=== PATIENT | male | born 1950 | race Caucasian/White ===

== ENCOUNTER 2017-05-09 00:50 | Inpatient (IN) | payer OTHER ==
[2017-05-09] VITALS (29 sets, daily range): BP systolic 73–132; BP diastolic 45–90; PULSE 45–71; TEMP 36.5–36.8; O2SAT 93–100; Ht 180.3 cm; Wt 81.5 kg
[~2017-05-09] VITALS: Ht 180.3 cm; Wt 81.5 kg
[2017-05-09] MEDS ORDERED: ONDANSETRON INJ 2 MG/ML 2 ML VIAL IV STA (01:05)
[2017-05-09] MEDS ORDERED: KETOROLAC TROMETHAMINE 30 MG/ML VIAL IV STA (01:05)
[2017-05-09] MEDS ORDERED: SODIUM CHLORIDE 0.9% 1000ML 1,000 ML IV STA ×3 (01:05→04:08)
[2017-05-09] MEDS ORDERED: CEFTRIAXONE SOD INJ 1 GM ADDVIAL IV STA (01:07)
[2017-05-09] MEDS ORDERED: ACETAMINOPHEN 500 MG TAB PO STA (01:09)
[2017-05-09] MEDS ORDERED: FENTANYL CITRATE INJ 50 MCG/1 ML 2 ML VIAL IV PRN (01:15)
[2017-05-09 01:52] LABS: BASO % 0.1 %; BASO ABS # 0.01 K/uL (0-0.2); COMPLETE YES; EOS % 0.1 %; HEMATOCRIT 39.8 % (42-52); IG% 0.7 %; LYMPH % 2.9 %; LYMPH ABS # 0.37 K/uL (1.2-3.4); MEAN CELL VOLUME 90.2 fL (80-100); MEAN CORPUSCULAR HEMOGLOBIN 32.4 pg (25-34); MEAN CORPUSCULAR HGB CONC 35.9 g/dl (32-36); MEAN PLATELET VOLUME 11.8 fL (7.4-10.4); NEUT % 95.2 %; PLATELET COUNT 167 K/uL (130-400); RED BLOOD COUNT 4.41 M/uL (4.7-6.1)
[2017-05-09 02:01] LABS: INR 1.1 (0.9-1.1); PROTHROMBIN TIME (PATIENT) 12.1 SECONDS (9.0-12.0)
[2017-05-09 02:25] LABS: BUN/CREATININE RATIO 14.1 (10-20); CALCIUM 8.7 mg/dl (8.5-10.1); CREATININE 1.1 mg/dl (0.60-1.40); POTASSIUM 3.6 mmol/L (3.5-5.1)
[2017-05-09] MEDS ORDERED: METRONIDAZOLE 500MG / 100ML NSS IV STA (04:03)
--- NOTE | 2017-05-09 04:27 | History and Physical ---
History & Physical Date & Time of Service: May 09, 2017 at 04:27 . Chief Complaint: fever, chills, sweats, abdominal pain . Primary Care Physician: No Doctor, Assigned . History of Present Illness Source: patient 67 YO male from [place], [place]. Visiting his family here. PCP: Dr. Kenny Morelos [address] [place] [address] He enjoys excellent health. 2 days prior to admission he developed epigastric abdominal pain a couple hours after eating a burrito. Pain was severe and did not radiate. It was initially associated with nausea, no vomiting. Tried antacid without much benefit. Yesterday he felt week and lightheaded. Persistent nausea and subsequent vomiting. No diarrhea. No hematemesis, melena, hematochezia. Temp as high as 104. Experienced chills and sweats. Came to ED for evaluation. BP as low as 79 systolic. BP remained in 80's systolic after fluid resuscitation with 2 L NSS. . Past Medical/Surgical History PMH no chronic medical problems PSH no surgical history . Family History FATHER Coronary artery disease MOTHER Alzheimer's disease Social History Smoking Status: Former Smoker Alcohol Use: occasionally Marital Status: Allergies Coded Allergies: No Known Allergies (Unverified , 05/09/17) Home Medications No Active Prescriptions or Reported Meds Review of Systems Constitutional: + fever, + chills, + sweats, No weight loss Eyes: No worsening of vision ENT: No nasal symptoms, No sore throat Respiratory: No cough, No shortness of breath Cardiovascular: No chest pain, No edema Abdomen: + problem reported (as noted above) Musculoskeletal: No joint pain, No muscle pain Neurologic: + problem reported (occasional headache) Endocrine: No excessive thirst, No excessive urination Hematologic / Lymphatic: No abnormal bleeding/bruising, No swollen lymph nodes Integumentary: No rash, No new/changing skin lesions Physical Exam Vital Signs Date Time Temp Pulse Resp B/P (MAP) Pulse Ox O2 Delivery O2 Flow Rate FiO2 05/09/17 04:07 36.4 75 14 82/50 93 Room Air 05/09/17 03:14 91/51 05/09/17 03:10 83 19 93 05/09/17 03:01 88/51 05/09/17 02:40 85 19 92 05/09/17 02:34 79 22 82/49 94 Room Air 05/09/17 02:33 76 18 79/47 95 Room Air 05/09/17 02:14 82 19 88/50 94 Room Air 05/09/17 02:03 85 21 86/52 92 Room Air 05/09/17 02:01 83 05/09/17 01:58 83 23 93/48 92 Room Air 05/09/17 00:55 37.9 109 18 104/67 95 Room Air General Appearance: WD/WN, no apparent distress Head: normocephalic, atraumatic Eyes: normal inspection, PERRL, EOMI, sclerae normal (conjunctivae pink) ENT: normal ENT inspection, hearing grossly normal, pharynx normal Neck: supple, no adenopathy, thyroid normal, trachea midline Respiratory/Chest: lungs clear, no respiratory distress, no accessory muscle use Cardiovascular: regular rate, rhythm, no edema, no gallop, no JVD, no murmur, normal peripheral pulses Abdomen/GI: + pertinent finding (quiet bowel sounds, soft, nondistended, nontender, no hepatomegaly or splenomegaly appreciated) Extremities/Musculoskelatal: normal inspection, no calf tenderness, no pedal edema 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 (PERRL, EOMI, no facial palsy, no dysarhtria), no motor/sensory deficits (motor strength upper and lower exrtremities intact), alert, normal mood/affect, normal reflexes (patellar DTR' s 2/2, plantar reflexes downgoing), oriented x 3 Skin: normal color, warm/dry, no rash, + diaphoresis (mild) Lymphatic: no adenopathy (cervical / axillary) Diagnostics Laboratory Results Results Past 24 Hours Test 05/09/17 01:25 Range/Units White Blood Count 12.70 4.8-10.8 K/uL Red Blood Count 4.41 4.7-6.1 M/uL Hemoglobin 14.3 14.0-18.0 g/dL Hematocrit 39.8 42-52 % Mean Corpuscular Volume 90.2 80-100 fL Mean Corpuscular Hemoglobin 32.4 25-34 pg Mean Corpuscular Hemoglobin Concent 35.9 32-36 g/dl Platelet Count 167 130-400 K/uL Mean Platelet Volume 11.8 7.4-10.4 fL Neutrophils (%) (Auto) 95.2 % Lymphocytes (%) (Auto) 2.9 % Monocytes (%) (Auto) 1.0 % Eosinophils (%) (Auto) 0.1 % Basophils (%) (Auto) 0.1 % Neutrophils # (Auto) 12.09 1.4-6.5 K/uL Lymphocytes # (Auto) 0.37 1.2-3.4 K/uL Monocytes # (Auto) 0.13 0.11-0.59 K/uL Eosinophils # (Auto) 0.01 0-0.5 K/uL Basophils # (Auto) 0.01 0-0.2 K/uL RDW Standard Deviation 42.2 36.4-46.3 fL RDW Coefficient of Variation 12.9 11.5-14.5 % Immature Granulocyte % (Auto) 0.7 % Immature Granulocyte # (Auto) 0.09 0.00-0.02 K/uL Prothrombin Time 12.1 9.0-12.0 SECONDS Prothromb Time International Ratio 1.1 0.9-1.1 Activated Partial Thromboplast Time 26.5 21.0-31.0 SECONDS Partial Thromboplastin Ratio 1.0 Sodium Level 137 136-145 mmol/L Potassium Level 3.6 3.5-5.1 mmol/L Chloride Level 105 98-107 mmol/L Carbon Dioxide Level 23 21-32 mmol/L Anion Gap 9.0 3-11 mmol/L Blood Urea Nitrogen 15 7-18 mg/dl Creatinine 1.10 0.60-1.40 mg/dl Est Creatinine Clear Calc Drug Dose 67.5 ml/min Estimated GFR () 79.0 Estimated GFR (Non- 68.1 BUN/Creatinine Ratio 14.1 10-20 Random Glucose 126 70-99 mg/dl Calcium Level 8.7 8.5-10.1 mg/dl Total Bilirubin 3.2 0.2-1 mg/dl Direct Bilirubin 1.6 0-0.2 mg/dl Aspartate Amino Transf (AST/SGOT) 166 15-37 U/L Alanine Aminotransferase (ALT/SGPT) 331 12-78 U/L Alkaline Phosphatase 155 45-117 U/L Total Protein 6.8 6.4-8.2 gm/dl Albumin 3.5 3.4-5.0 gm/dl Lipase 168 73-393 U/L Microbiology Results 05/09/17 Blood Culture, Received Pending 05/09/17 Blood Culture, Received Pending Diagnostic Radiology Chest x-ray reviewed by undersigned (preliminary interpretation): no infiltrates, effusions, CHF US RUQ preliminary interpretation by [facility]: cholelithiasis without apparent cholecystitis or choledocholithiasis . EKG EKG performed at 01:16 reviewed and demonstrated NSR at 90 / minute, no acute ST or T-wave abnormalities. . Impression Assessment and Plan SEPSIS Meets criteria for sepsis per 2001 definition and current CMS guidelines ( reported fever of 104, tachycardia, leukocytosis). Systolic BP as low as 79 in ED. Remained hypotensive despite initial fluid resuscitation with 2 L NSS. Serum lactate 0.79. Most likely source of sepsis = biliary tract. US RUQ shows cholelithiasis, though no apparent cholecystitis or choledocholithiasis (preliminary reading). LFT's elevated. Lipase normal. Blood cultures obtained in ED. Received broad spectrum antibiotic coverage with ceftriaxone and metronidazole. Will change antimicrobial therapy to ampicillin / sulbactam. Continue IV fluids. Add pressor support if hemodynamics do not improve. Consult GI regarding biliary tract concerns. Consult CCM regarding sepsis. VTE PROPHYLAXIS SCD's pending decisions about possible invasive procedures. Ambulate when able. RESUSCITATION STATUS Discussed with patient. He does not have a living will. He would like resuscitation attempted in the event of a cardiopulmonary arrest if there is a reasonable chance of a meaningful recovery, but does not want prolonged extraordinary measures if prognosis is poor. Therefore, code status = "Level 1" (full resuscitation). DISPOSITION Admit to ICU. Expected discharge to home. Medical follow-up with Dr. Morelos in [place]. . VTE Prophylaxis VTE Risk Assessment Done? Y/N: Yes Risk Level: Moderate Given or contraindicated: SCD's Additional Copies To Dr. Kenny Julien
--- NOTE | 2017-05-09 05:15 | EMERGENCY ROOM VISIT NOTE ---
History Report prepared by [place]: Chet Tapia Under the Supervision of: Dr. Lit Woody D.O. First contact with patient: 01:00 Chief Complaint: ABDOMINAL PAIN Stated Complaint: FEVER,STOMACH PAINS,VOMITING,SHAKES,SWEATS History of Present Illness The patient is a 67 year old male who presents to the Emergency Room with complaints of worsening dizziness beginning this morning. He currently rates his discomfort an 8/10 in severity. The patient states he took TUMs last night because he was experiencing severe abdominal pain and went to bed. He reports that he woke up this morning from a bad nights sleep. The patient notes that he was experiencing tremors, chills, a fever, diaphoresis, weakness, and joint pain. He states that he vomited prior to arrival, and his daughter thinks he lost consciousness briefly on the way to the ED. The patient reports his is sick with a head cold and sorethroat. He denies a history of abdominal surgery and taking medication. Source of History: patient Onset: last evening Position: head Symptom Intensity: 8/10 Quality: other (dizziness) Timing: worsening Associated Symptoms: + LOC, + fevers, + chills, + diaphoresis, + vomiting, + abdominal pain, + weakness Note: Associated symptoms: tremors, and joint pain Review of Systems See HPI for pertinent positives & negatives. A total of 10 systems reviewed and were otherwise negative. Past Medical & Surgical Medical Problems: (1) No Known Active Medical Problems (2) Sepsis Family History Heart disease Social History Smoking Status: Never Smoker Smokeless Tobacco Use: No Alcohol Use: occasionally Marital Status: Housing Status: lives with significant other Current/Historical Medications No Active Prescriptions or Reported Meds Allergies Coded Allergies: No Known Allergies (Unverified , 05/09/17) Physical Exam Vital Signs Date Time Temp Pulse Resp B/P (MAP) Pulse Ox O2 Delivery O2 Flow Rate FiO2 05/09/17 05:01 87/57 05/09/17 04:49 71 18 95 05/09/17 04:31 95/56 05/09/17 04:19 73 17 92 05/09/17 04:07 36.4 75 14 82/50 93 Room Air 05/09/17 04:07 82/50 05/09/17 03:19 80 19 94 05/09/17 03:14 91/51 05/09/17 03:10 83 19 93 05/09/17 03:01 88/51 05/09/17 02:40 85 19 92 05/09/17 02:34 79 22 82/49 94 Room Air 05/09/17 02:33 76 18 79/47 95 Room Air 05/09/17 02:14 82 19 88/50 94 Room Air 05/09/17 02:03 85 21 86/52 92 Room Air 05/09/17 02:01 83 05/09/17 01:58 83 23 93/48 92 Room Air 05/09/17 00:55 37.9 109 18 104/67 95 Room Air Physical Exam CONSTITUTIONAL/VITAL SIGNS: Reviewed / noted above. GENERAL: Non-toxic in appearance. INTEGUMENTARY: Warm, dry, and [place]. HEAD: Normocephalic. EYES: without scleral icterus or trauma. ENT/OROPHARYNX: clear and moist. LYMPHADENOPATHY/NECK: Is supple without lymphadenopathy or meningismus. RESPIRATORY: Lungs clear and equal. CARDIOVASCULAR: Regular rate and rhythm. GI/ABDOMEN: Soft and mild diffuse tenderness to palpation (described as a 1/10 in severity). No organomegaly or pulsatile mass. No rebound or guarding. Normal bowel sounds. EXTREMITIES: Warm and well perfused. BACK: No CVA tenderness. NEUROLOGICAL: Intact without focal deficits. PSYCHIATRIC: normal affect. MUSCULOSKELETAL: Normally developed with good muscle tone. Medical Decision & Procedures ER Provider Diagnostic Interpretation: Radiology results as stated below per my review and radiologist interpretation: One view chest x-ray: no acute disease, no pneumothorax, no pneumonia US RUQ: Enlarged mildly echogenic liver suggesting steatosis. Normal right kidney. No biliary dilatation. Cholelithiasis without sonographic findings of acute cholecystitis. Radiologist: Tee Phillip MD 6 Study ready at [id number] and initial results transmitted at [id number]. Laboratory Results 05/09/17 01:25 Red Blood Count 4.41, Mean Corpuscular Volume 90.2, Mean Corpuscular Hemoglobin 32.4, Mean Corpuscular Hemoglobin Concent 35.9, Mean Platelet Volume 11.8, Neutrophils (%) (Auto) 95.2, Lymphocytes (%) (Auto) 2.9, Monocytes (%) (Auto) 1.0, Eosinophils (%) (Auto) 0.1, Basophils (%) (Auto) 0.1, Neutrophils # (Auto) 12.09, Lymphocytes # (Auto) 0.37, Monocytes # (Auto) 0.13, Eosinophils # (Auto) 0.01, Basophils # (Auto) 0.01 05/09/17 01:25 Test 05/09/17 01:25 05/09/17 04:18 White Blood Count 12.70 K/uL (4.8-10.8) Red Blood Count 4.41 M/uL (4.7-6.1) Hemoglobin 14.3 g/dL (14.0-18.0) Hematocrit 39.8 % (42-52) Mean Corpuscular Volume 90.2 fL (80-100) Mean Corpuscular Hemoglobin 32.4 pg (25-34) Mean Corpuscular Hemoglobin Concent 35.9 g/dl (32-36) Platelet Count 167 K/uL (130-400) Mean Platelet Volume 11.8 fL (7.4-10.4) Neutrophils (%) (Auto) 95.2 % Lymphocytes (%) (Auto) 2.9 % Monocytes (%) (Auto) 1.0 % Eosinophils (%) (Auto) 0.1 % Basophils (%) (Auto) 0.1 % Neutrophils # (Auto) 12.09 K/uL (1.4-6.5) Lymphocytes # (Auto) 0.37 K/uL (1.2-3.4) Monocytes # (Auto) 0.13 K/uL (0.11-0.59) Eosinophils # (Auto) 0.01 K/uL (0-0.5) Basophils # (Auto) 0.01 K/uL (0-0.2) RDW Standard Deviation 42.2 fL (36.4-46.3) RDW Coefficient of Variation 12.9 % (11.5-14.5) Immature Granulocyte % (Auto) 0.7 % Immature Granulocyte # (Auto) 0.09 K/uL (0.00-0.02) Prothrombin Time 12.1 SECONDS (9.0-12.0) Prothromb Time International Ratio 1.1 (0.9-1.1) Activated Partial Thromboplast Time 26.5 SECONDS (21.0-31.0) Partial Thromboplastin Ratio 1.0 Anion Gap 9.0 mmol/L (3-11) Est Creatinine Clear Calc Drug Dose 67.5 ml/min Estimated GFR () 79.0 Estimated GFR (Non- 68.1 BUN/Creatinine Ratio 14.1 (10-20) Calcium Level 8.7 mg/dl (8.5-10.1) Total Bilirubin 3.2 mg/dl (0.2-1) Direct Bilirubin 1.6 mg/dl (0-0.2) Aspartate Amino Transf (AST/SGOT) 166 U/L (15-37) Alanine Aminotransferase (ALT/SGPT) 331 U/L (12-78) Alkaline Phosphatase 155 U/L (45-117) Total Protein 6.8 gm/dl (6.4-8.2) Albumin 3.5 gm/dl (3.4-5.0) Lipase 168 U/L (73-393) Bedside Lactic Acid Venous 0.79 mmol/L (0.90-1.70) Laboratory results as stated above per my review. Medications Administered Medications (Trade) Dose Ordered Sig/Gage Route Start Time Stop Time Status Last Admin Dose Admin Sodium Chloride 1,000 ml @ 999 mls/hr Q1H1M STAT IV 05/09/17 01:05 05/09/17 02:05 DC 05/09/17 01:05 999 MLS/HR Ondansetron HCl (Zofran Inj) 4 mg NOW STAT IV 05/09/17 01:05 05/09/17 01:07 DC 05/09/17 01:16 4 MG Ketorolac Tromethamine (Toradol Inj) 30 mg NOW STAT IV 05/09/17 01:05 05/09/17 01:07 DC 05/09/17 01:17 30 MG Ceftriaxone Sodium (Rocephin Inj) 1 gm NOW STAT IV 05/09/17 01:07 05/09/17 01:08 DC 05/09/17 01:17 1 GM Acetaminophen (Tylenol Tab) 1,000 mg NOW STAT PO 05/09/17 01:09 05/09/17 01:10 DC 05/09/17 01:17 1,000 MG Sodium Chloride 1,000 ml @ 999 mls/hr Q1H1M STAT IV 05/09/17 02:15 05/09/17 03:15 DC 05/09/17 02:15 999 MLS/HR Metronidazole (Flagyl / Nss) 500 mg NOW STAT IV 05/09/17 04:03 05/09/17 04:04 DC 05/09/17 05:08 500 MG Sodium Chloride 1,000 ml @ 999 mls/hr Q1H1M STAT IV 05/09/17 04:08 05/09/17 05:08 DC 05/09/17 04:42 999 MLS/HR ECG Indication: abdominal pain Rate (beats per minute): 88 Rhythm: normal sinus Findings: no acute ischemic change, no ectopy ED Course 0102: Previous medical records were reviewed. The patient was evaluated in room B06. A complete history and physical examination was performed. 0105: Ordered Toradol Inj 30mg IV, Zofran Inj 4mg IV, Sodium Chloride 1000 ml @ 999 mls/hr IV 0107: Ordered Rocephin Inj 1gm IV 0109: Ordered Acetaminophen 1000mg PO 0115: Ordered Fentanyl Citrate 50mcg IV 0215: Ordered Sodium Chloride 1000 ml @ 999 mls/hr IV 0314: I reevaluated the patient and updated him about his elevated LFTs. He denies a history of a cholecystectomy. The patient will be going for an ultrasound of the gallbladder. He denies a history of hypotension. The patient notes he is feeling a lot better. 0401: On reevaluation, the patient is felling better. I discussed the results and findings with him. He verbalized agreement of the treatment plan. 0403; Ordered Metronidazole 500mg IV 0408: Ordered Sodium Chloride 1000 ml @ 999 mls/hr IV 0413: I discussed the patients case with Dr. Sandoval, [facility] Hospitalist. The patient will be evaluated for further treatment. Medical Decision Differential includes viral illness, influenza, streptococcal pharyngitis, meningitis, pneumonia, sinusitis, UTI, pyelonephritis, and otitis media. This is a 67-year-old male who presents to the ED with a chief complaint of generalized aches, fevers, tremors, stomach pain, joint pain. The patient states that the symptoms started yesterday. He reports an episode of nausea and vomiting tonight. He states that his stomach pain seemed to improve since earlier. He complains of feeling a little dizzy. Temperature 37.9. Heart rate was 109. The patient has had some sick relatives. His physical exam revealed a mild diffuse abdominal tenderness. There were no rashes. His lungs were clear. He does not appear to be in any distress. Chest x-ray did not show acute disease. CBC reveals a white blood cell count of 12.7. LFTs are elevated as is the bilirubin. EKG shows a normal sinus rhythm. Gallbladder ultrasound shows cholelithiasis. [id number] lactate was normal. The patient was treated with IV Toradol, IV fluids 3 L, IV fentanyl, IV Zofran, Tylenol by mouth, IV Rocephin and IV Flagyl. The patient's blood pressure was initially okay and the patient was slightly tachycardic. The patient's tachycardia improved but his blood pressure decreased into the 80s systolic despite the IV fluids. I spoke with Dr. Sandoval, who will see the patient for further inpatient evaluation and care. The patient did state that symptomatically, he was feeling much better. Medication Reconcilliation Current Medication List: was personally reviewed by me Blood Pressure Screening Patient's blood pressure: Low blood pressure Monitored by hospitalist. Consults Time Called: [phone] [facility]: [phone] [facility] The patient will be evaluated for further treatment. Impression Primary Impression: Ascending cholangitis Additional Impression: Sepsis Critical Care I have personally spent greater than 35 minutes of critical care time in the direct management of this patient. This includes bedside care, interpretation of diagnostic studies, and testing, discussion with consultants, patient, and family members, and other required patient management activities. This 35 minutes is in excess of all separately billable procedures. Scribe Attestation The scribe's documentation has been prepared under my direction and personally reviewed by me in its entirety. I confirm that the note above accurately reflects all work, treatment, procedures, and medical decision making performed by me. Departure Information Dispostion Being Evaluated By Hospitalist Prescriptions No Active Prescriptions or Reported Meds Referrals No Doctor, Assigned (PCP) Patient Instructions My [facility] Problem Qualifiers
[2017-05-09] MEDS ORDERED: NOREPINEPHRINE BIT INJ 8 MG in DEXTROSE 5% 500ML 500 ML IV PRN (05:50)
[2017-05-09] MEDS ORDERED: LACTATED RINGER'S 1000ML 1,000 ML IV SCH (06:00)
--- NOTE | 2017-05-09 06:31 | Progress Note ---
Progress Note Post Crystalloid Evaluation Date: May 09, 2017 Time: 06:25 Subjective BP's still fluctuating. Systolic BP up to 90, MAP up to 56. Denies CP, SOB, abdominal pain, nausea, vomiting. . Physical Exam Vital Signs: Vital Signs Date Time Temp Pulse Resp B/P (MAP) Pulse Ox O2 Delivery O2 Flow Rate FiO2 05/09/17 06:15 56 16 90/46 (61) 96 05/09/17 06:00 Room Air 05/09/17 05:15 36.8 Lungs: lungs clear Heart: regular rate, rhythm, no edema, no gallop, no JVD Peripheral Pulse: Normal Capillary Refill: Normal (less than 2 seconds) Skin: Unremarkable Assessment & Plan Sepsis, probable biliary tract etiology. Hemodynamics improving after fluid resuscitation with 3 L NSS. Received broad spectrum antibiotics. Check repeat labs, including procalcitonin + repeat lactate. .
[2017-05-09] MEDS ORDERED: AMPICILLIN/SULBACTAM SOD INJ 3,000 MG in SODIUM CHLORIDE 0.9% 100ML 100 ML IV STA (06:43)
--- NOTE | 2017-05-09 07:04 | DIAGNOSTIC IMAGING REPORT ---
ABDOMINAL ULTRASOUND, RIGHT UPPER QUADRANT HISTORY: elevated lfts. COMPARISON: None. FINDINGS: Pancreas: The pancreatic head and tail are obscured by overlying bowel gas. The remaining portions of the pancreas are within normal limits. Liver: Mildly enlarged measuring 21 cm. No hepatic masses. Gallbladder: Multiple small gallstones. No gallbladder wall thickening. CBD: 5 mm. Right kidney: No hydronephrosis. IMPRESSION: 1. Mild hepatomegaly. 2. Cholelithiasis. Electronically signed by: Moises Rausch M.D. 05/09/2017 7:02 AM Dictated Date/Time: 05/09/2017 7:01 AM
--- NOTE | 2017-05-09 07:23 | DIAGNOSTIC IMAGING REPORT ---
CHEST ONE VIEW PORTABLE HISTORY: Generalized abdominal pain. Vomiting. COMPARISON: None. FINDINGS: The lungs are clear. Cardiac silhouette is normal in size. No pleural effusions. No pneumothorax. IMPRESSION: No acute process. Electronically signed by: Moises Rausch M.D. 05/09/2017 7:22 AM Dictated Date/Time: 05/09/2017 7:21 AM
[2017-05-09 07:43] LABS: HEMATOCRIT 34.4 % (42-52); MEAN CELL VOLUME 90.1 fL (80-100); MEAN CORPUSCULAR HEMOGLOBIN 32.2 pg (25-34); MEAN CORPUSCULAR HGB CONC 35.8 g/dl (32-36); MEAN PLATELET VOLUME 11.9 fL (7.4-10.4); PLATELET COUNT 159 K/uL (130-400); RED BLOOD COUNT 3.82 M/uL (4.7-6.1); WHITE BLOOD COUNT 18.83 K/uL (4.8-10.8)
[2017-05-09] MEDS: PANTOprazole INJ 40 MG in SYRINGE 0 ML IV SCH (07:44)
[2017-05-09 08:12] LABS: BUN/CREATININE RATIO 14.8 (10-20); CALCIUM 7.9 mg/dl (8.5-10.1); CREATININE 0.95 mg/dl (0.60-1.40); POTASSIUM 3.7 mmol/L (3.5-5.1)
[2017-05-09] MEDS: SODIUM CHLORIDE 0.9% 1000ML 1,000 ML IV SCH ×2 (08:27→17:02)
[2017-05-09] MEDS ORDERED: NURSING VERBAL MED ORDER ONE (08:30)
[2017-05-09 09:44] LABS: URINE APPEARANCE CLEAR (CLEAR); URINE BILIRUBIN NEG (NEG); URINE COLOR DK YELLOW; URINE NITRITE NEG (NEG); UROBILINOGEN NEG (NEG)
[2017-05-09 09:46] LABS: MANUAL MICROSCOPIC REQUIRED? NO; REVIEW REQ? NO
--- NOTE | 2017-05-09 09:52 | Critical Care Consultation ---
Critical Care Consultation Date of Consultation: May 09, 2017. Attending Physician: Brice Davidson MD Reason for Consultation: sepsis. History of Present Illness Dear Dr. Sandoval: Thank you for your kind referral of Mr. Clayton to the ICU serviceBethany Singleton is 67 yo male without PMHX, not on any medications at home, presented to the ED with two days of nausia, vomiting, abdominal discomfort and dizziness, the pt denies chest pain, syncope , but he felt fever and chills after eating two days old burritos . he presented to the Ed and found to be hypotensive with systolic 70 mm, started on IVF and received overnight almost 4.5 liters of fluid. he feels better this am but continued to need pressors to support his BP. no nausea or vomiting now and no abdominal pain either. he was started on Unasyn and his lab work up revealed elevated liver and billiary markers. US of the abdomen showed cholelithiasis but GB wall thickening and no billiary dilation. Lipase was normal. the pt denies alcohol drinking and he is ex smoker quit 4 years ago. he is on no meds. never been hospitalized. Family History Alzheimer's disease MOTHER Coronary artery disease FATHER Social History Smoking Status: Former Smoker Smokeless Tobacco Use: No Alcohol Use: occasionally Marital Status: Housing Status: lives with significant other Allergies Coded Allergies: No Known Allergies (Unverified , 05/09/17) Home Medications No Active Prescriptions or Reported Meds Current Inpatient Medications Current Inpatient Medications Medications (Trade) Dose Ordered Sig/Gage Route Start Time Stop Time Status Last Admin Dose Admin Pantoprazole Sodium 40 mg/ Syringe 10 ml @ 5 mls/min DAILY IV 05/09/17 09:00 06/08/17 08:59 05/09/17 07:44 5 MLS/MIN Norepinephrine Bitartrate 8 mg/ Dextrose 508 ml @ 0 mls/hr Q0M PRN IV 05/09/17 05:50 06/08/17 05:49 05/09/17 06:45 30.2 MLS/HR Ampicillin Sodium/ Sulbactam Sodium 3000 mg/Sodium Chloride 108 ml @ 200 mls/hr Q6H IV 05/09/17 12:00 05/19/17 11:59 Sodium Chloride 1,000 ml @ 100 mls/hr Q10H IV 05/09/17 08:30 06/08/17 08:29 05/09/17 08:27 100 MLS/HR Review of Systems Constitutional: + fever, + chills, + sweats Eyes: No worsening of vision, No eye pain, No redness, No discharge, No diplopia, No problem reported ENT: No hearing loss, No unusual epistaxis, No nasal symptoms, No sore throat, No tinnitus, No dental problems, No trouble swallowing, No problem reported Respiratory: No cough, No sputum, No wheezing, No shortness of breath, No dyspnea on exertion, No dyspnea at rest, No hemoptysis, No problem reported Cardiovascular: No chest pain, No orthopnea, No PND, No edema, No claudication , No palpitations, No problem reported Abdomen: + pain, + nausea, + vomiting Neurologic: No memory loss, No paralysis, No weakness, No numbness/tingling, No vertigo, No balance problems, No problem reported Psychiatric: No depression symptoms, No anhedonism, No anxiety, No insomnia, No substance abuse, No problem reported Endocrine: No fatigue, No excessive thirst, No excessive urination, No problem reported Hematologic / Lymphatic: No abnormal bleeding/bruising, No clotting problems, No swollen lymph nodes, No night sweats, No problem reported Allergic / Immunologic: No environmental allergies, No seasonal allergies, No pet sensitivities, No food allergies, No hives, No frequent infections, No poor healing, No prolonged convalescence, No problem reported Physical Exam Date Time Temp Pulse Resp B/P (MAP) Pulse Ox O2 Delivery O2 Flow Rate FiO2 05/09/17 09:01 47 15 110/60 (77) 98 Room Air 05/09/17 08:31 49 19 116/69 (85) 98 Room Air 05/09/17 08:01 36.5 64 20 121/64 (83) 96 Room Air 05/09/17 08:00 Room Air 05/09/17 07:51 71 14 100/58 (72) 97 Room Air 05/09/17 07:46 57 18 122/63 (82) 96 Room Air 05/09/17 07:31 49 16 113/64 (80) 95 Room Air 05/09/17 07:16 54 18 108/53 (71) 95 Room Air 05/09/17 07:01 45 15 111/55 (73) 94 Room Air 05/09/17 06:45 45 17 120/55 (76) 98 05/09/17 06:36 56 15 74/45 (55) 94 05/09/17 06:30 55 16 73/48 (56) 93 05/09/17 06:15 56 16 90/46 (61) 96 05/09/17 06:00 61 16 82/51 (61) 95 Room Air 05/09/17 05:45 61 18 77/51 (60) 95 Room Air 05/09/17 05:31 64 24 81/50 (60) 94 05/09/17 05:16 93/63 (73) 05/09/17 05:15 36.8 68 22 93/63 94 Room Air 05/09/17 05:01 87/57 05/09/17 04:49 71 18 95 05/09/17 04:31 95/56 05/09/17 04:19 73 17 92 05/09/17 04:07 36.4 75 14 82/50 93 Room Air 05/09/17 04:07 82/50 05/09/17 03:19 80 19 94 05/09/17 03:14 91/51 05/09/17 03:10 83 19 93 05/09/17 03:01 88/51 05/09/17 02:40 85 19 92 05/09/17 02:34 79 22 82/49 94 Room Air 05/09/17 02:33 76 18 79/47 95 Room Air 05/09/17 02:14 82 19 88/50 94 Room Air 05/09/17 02:03 85 21 86/52 92 Room Air 05/09/17 02:01 83 05/09/17 01:58 83 23 93/48 92 Room Air 05/09/17 00:55 37.9 109 18 104/67 95 Room Air General Appearance: well-appearing, WD/WN, no apparent distress Head: normocephalic, atraumatic Eyes: PERRLA, no discharge, EOMI, sclerae normal ENT: normal ear exam, normal nasal exam, normal mouth exam, normal throat exam Neck: normal range of motion, no tenderness Respiratory: breath sounds normal, clear to auscultation Cardiovasular: regular rate/rhythm, normal S1S2, no M/G/R Abdomen: non tender, normal bowel sounds, no rebound, no masses, no guarding Upper Extremities: no edema Lower Extremities: no edema Neuro: alert, oriented x 3, normal motor exam, normal sensation Psychiatric: normal affect Laboratory Results Last 24 Hours Test 05/09/17 01:25 05/09/17 04:18 05/09/17 07:12 05/09/17 07:20 White Blood Count 12.70 K/uL 18.83 K/uL Red Blood Count 4.41 M/uL 3.82 M/uL Hemoglobin 14.3 g/dL 12.3 g/dL Hematocrit 39.8 % 34.4 % Mean Corpuscular Volume 90.2 fL 90.1 fL Mean Corpuscular Hemoglobin 32.4 pg 32.2 pg Mean Corpuscular Hemoglobin Concent 35.9 g/dl 35.8 g/dl Platelet Count 167 K/uL 159 K/uL Mean Platelet Volume 11.8 fL 11.9 fL Neutrophils (%) (Auto) 95.2 % Lymphocytes (%) (Auto) 2.9 % Monocytes (%) (Auto) 1.0 % Eosinophils (%) (Auto) 0.1 % Basophils (%) (Auto) 0.1 % Neutrophils # (Auto) 12.09 K/uL Lymphocytes # (Auto) 0.37 K/uL Monocytes # (Auto) 0.13 K/uL Eosinophils # (Auto) 0.01 K/uL Basophils # (Auto) 0.01 K/uL RDW Standard Deviation 42.2 fL 43.2 fL RDW Coefficient of Variation 12.9 % 13.1 % Immature Granulocyte % (Auto) 0.7 % Immature Granulocyte # (Auto) 0.09 K/uL Prothrombin Time 12.1 SECONDS Prothromb Time International Ratio 1.1 Activated Partial Thromboplast Time 26.5 SECONDS Partial Thromboplastin Ratio 1.0 Sodium Level 137 mmol/L 141 mmol/L Potassium Level 3.6 mmol/L 3.7 mmol/L Chloride Level 105 mmol/L 109 mmol/L Carbon Dioxide Level 23 mmol/L 21 mmol/L Anion Gap 9.0 mmol/L 11.0 mmol/L Blood Urea Nitrogen 15 mg/dl 14 mg/dl Creatinine 1.10 mg/dl 0.95 mg/dl Est Creatinine Clear Calc Drug Dose 67.5 ml/min 78.1 ml/min Estimated GFR () 79.0 94.3 Estimated GFR (Non- 68.1 81.3 BUN/Creatinine Ratio 14.1 14.8 Random Glucose 126 mg/dl 136 mg/dl Calcium Level 8.7 mg/dl 7.9 mg/dl Total Bilirubin 3.2 mg/dl Direct Bilirubin 1.6 mg/dl Aspartate Amino Transf (AST/SGOT) 166 U/L Alanine Aminotransferase (ALT/SGPT) 331 U/L Alkaline Phosphatase 155 U/L Total Protein 6.8 gm/dl Albumin 3.5 gm/dl Lipase 168 U/L Bedside Lactic Acid Venous 0.79 mmol/L Procalcitonin 29.10 ng/ml Hepatitis C Antibody Screen NEG Lactic Acid Level 1.7 mmol/L Test 05/09/17 09:15 Diagnostic Results US and CXR reviewed personally. as above mentioned in the first paragraph. Assessment & Plan 1- septic shock presumably acute cholangitis. no other source of infectious process to explain his sepsis. ( CXR is negative, UA is normal, lactate is normal). Plan: 1- obtain HIDA scan. 2- agree with Unasyn. 3- IVF with NS at 100 ml/hr. 4- taper Levophed to off. 5- if the HIDA is negative and he remains hypotensive, will proceed with abdominal / pelvic ct to r/o intra-abdominal process ( ischemia, infectious colitis, pyelo...etc). 6- DVT prophylaxis. 7- keep him NPO. 8- discussed with the staff on rounds in details. 9- awaiting GI input. discussed the plan with the pt , agreed to it, all questions been answered. CCT 45 min.
--- NOTE | 2017-05-09 10:46 | Progress Note ---
Medicine Progress Note Date & Time of Visit: May 09, 2017 at 10:46. Subjective seen resting in bed, comfortable states he feels improved compared to arrival less fever/chills, dizziness denies abdominal pain, nausea no chest pain, dyspnea no other symptom Objective Last 8 Hrs Date Time Temp Pulse Resp B/P (MAP) Pulse Ox O2 Delivery O2 Flow Rate FiO2 05/09/17 09:01 47 15 110/60 (77) 98 Room Air 05/09/17 08:31 49 19 116/69 (85) 98 Room Air 05/09/17 08:01 36.5 64 20 121/64 (83) 96 Room Air 05/09/17 08:00 Room Air 05/09/17 07:51 71 14 100/58 (72) 97 Room Air 05/09/17 07:46 57 18 122/63 (82) 96 Room Air 05/09/17 07:31 49 16 113/64 (80) 95 Room Air 05/09/17 07:16 54 18 108/53 (71) 95 Room Air 05/09/17 07:01 45 15 111/55 (73) 94 Room Air 05/09/17 06:45 45 17 120/55 (76) 98 05/09/17 06:36 56 15 74/45 (55) 94 05/09/17 06:30 55 16 73/48 (56) 93 05/09/17 06:15 56 16 90/46 (61) 96 05/09/17 06:00 61 16 82/51 (61) 95 Room Air 05/09/17 05:45 61 18 77/51 (60) 95 Room Air 05/09/17 05:31 64 24 81/50 (60) 94 05/09/17 05:16 93/63 (73) 05/09/17 05:15 36.8 68 22 93/63 94 Room Air 05/09/17 05:01 87/57 05/09/17 04:49 71 18 95 05/09/17 04:31 95/56 05/09/17 04:19 73 17 92 05/09/17 04:07 36.4 75 14 82/50 93 Room Air 05/09/17 04:07 82/50 05/09/17 03:19 80 19 94 05/09/17 03:14 91/51 9/23/17 03:10 83 19 93 05/09/17 03:01 88/51 Physical Exam: General- oriented x 3, not in distress, speaks in sentences with no effort Head- atraumatic Eyes- EOMI, anicteric ENT- oropharynx clear Neck- supple, no JVD, no adenopathy, no thyromegaly Lungs- clear breath sounds bilaterally,no rales/wheezes Heart- regular rhythm; no murmur, normal rate Abdomen- normal bowel sounds, non distended, soft, nontender, no Salter's sign Extremities- no pretibial edema, no calf tenderness Neuro- alert, oriented x 3;no gross focal deficits Skin- warm & dry Laboratory Results: Last 24 Hours Test 05/09/17 01:25 05/09/17 04:18 05/09/17 07:12 05/09/17 07:20 White Blood Count 12.70 K/uL 18.83 K/uL Red Blood Count 4.41 M/uL 3.82 M/uL Hemoglobin 14.3 g/dL 12.3 g/dL Hematocrit 39.8 % 34.4 % Mean Corpuscular Volume 90.2 fL 90.1 fL Mean Corpuscular Hemoglobin 32.4 pg 32.2 pg Mean Corpuscular Hemoglobin Concent 35.9 g/dl 35.8 g/dl Platelet Count 167 K/uL 159 K/uL Mean Platelet Volume 11.8 fL 11.9 fL Neutrophils (%) (Auto) 95.2 % Lymphocytes (%) (Auto) 2.9 % Monocytes (%) (Auto) 1.0 % Eosinophils (%) (Auto) 0.1 % Basophils (%) (Auto) 0.1 % Neutrophils # (Auto) 12.09 K/uL Lymphocytes # (Auto) 0.37 K/uL Monocytes # (Auto) 0.13 K/uL Eosinophils # (Auto) 0.01 K/uL Basophils # (Auto) 0.01 K/uL RDW Standard Deviation 42.2 fL 43.2 fL RDW Coefficient of Variation 12.9 % 13.1 % Immature Granulocyte % (Auto) 0.7 % Immature Granulocyte # (Auto) 0.09 K/uL Prothrombin Time 12.1 SECONDS Prothromb Time International Ratio 1.1 Activated Partial Thromboplast Time 26.5 SECONDS Partial Thromboplastin Ratio 1.0 Sodium Level 137 mmol/L 141 mmol/L Potassium Level 3.6 mmol/L 3.7 mmol/L Chloride Level 105 mmol/L 109 mmol/L Carbon Dioxide Level 23 mmol/L 21 mmol/L Anion Gap 9.0 mmol/L 11.0 mmol/L Blood Urea Nitrogen 15 mg/dl 14 mg/dl Creatinine 1.10 mg/dl 0.95 mg/dl Est Creatinine Clear Calc Drug Dose 67.5 ml/min 78.1 ml/min Estimated GFR () 79.0 94.3 Estimated GFR (Non- 68.1 81.3 BUN/Creatinine Ratio 14.1 14.8 Random Glucose 126 mg/dl 136 mg/dl Calcium Level 8.7 mg/dl 7.9 mg/dl Total Bilirubin 3.2 mg/dl Direct Bilirubin 1.6 mg/dl Aspartate Amino Transf (AST/SGOT) 166 U/L Alanine Aminotransferase (ALT/SGPT) 331 U/L Alkaline Phosphatase 155 U/L Total Protein 6.8 gm/dl Albumin 3.5 gm/dl Lipase 168 U/L Bedside Lactic Acid Venous 0.79 mmol/L Procalcitonin 29.10 ng/ml Hepatitis C Antibody Screen NEG Lactic Acid Level 1.7 mmol/L Test 05/09/17 09:15 Urine Color DK YELLOW Urine Appearance CLEAR Urine pH 6.0 Urine Specific [place] 1.010 Urine Protein NEG Urine Glucose (UA) NEG Urine Ketones 1+ Urine Occult Blood NEG Urine Nitrite NEG Urine Bilirubin NEG Urine Urobilinogen NEG Urine Leukocyte Esterase NEG Date/Time Source Procedure Growth Status 05/09/17 01:25 Blood Blood Culture Pending Received 05/09/17 01:20 Blood Blood Culture Pending Received 05/09/17 05:23 Nasal MRSA DNA Surveillance Screen - Final Specimen Negative for MRSA by DNA Probe Complete Assessment & Plan SEPTIC SHOCK LIKELY BILIARY TRACT SOURCE, CHOLANGITIS? - improving - off Levophed - cultures pending - MRCP ordered - continue empiric Unasyn IV clear liquids discussed with GI Dr. Bello and Dr. Neely may need ERCP - monitor while on medical management VTE PROPHYLAXIS SCD's pending decisions about possible invasive procedures. Ambulate when able. RESUSCITATION STATUS "Level 1" (full resuscitation). DISPOSITION Admit to ICU. Expected discharge to home. Medical follow-up with Dr. Morelos in [place]. . VTE Prophylaxis VTE Risk Assessment Done? Y/N: Yes Risk Level: Moderate Given or contraindicated: SCD's Additional Copies To Dr. Kenny Julien <Electronically signed by Morgan Sandoval M.D.> Signed: 05/09/17603 Signed: The status of this report is Signed * If report status is Draft, the document has not been finalized by the responsible provider. MNE: [facility] History and Physical Template <AttendingPhy>Brice Davidson MD</AttendingPhy><EDPhy>Lit Woody D.O.</ EDPhy> <FamilyPhy>No Doctor, Assigned</FamilyPhy> <PrimaryPhy>No Doctor, Assigned</PrimaryPhy><UnitNumber>[id number]</UnitNumber><VisitNumber> [id number]</VisitNumber><PatientName>WERO TIWARI</PatientName><DateOfBirth></DateOfBirth><Age>67</Age><Location>C.MS[facility]</Location><ServiceDate></ServiceDate><CC>Morgan Sandoval M.D. Dr. Louis Destafano No Doctor, Assigned</CC><MNE>ACUTEMED</MNE> Current Inpatient Medications: Current Inpatient Medications Medications (Trade) Dose Ordered Sig/Gage Route Start Time Stop Time Status Last Admin Dose Admin Pantoprazole Sodium 40 mg/ Syringe 10 ml @ 5 mls/min DAILY IV 05/09/17 09:00 06/08/17 08:59 05/09/17 07:44 5 MLS/MIN Norepinephrine Bitartrate 8 mg/ Dextrose 508 ml @ 0 mls/hr Q0M PRN IV 05/09/17 05:50 06/08/17 05:49 05/09/17 06:45 30.2 MLS/HR Ampicillin Sodium/ Sulbactam Sodium 3000 mg/Sodium Chloride 108 ml @ 200 mls/hr Q6H IV 05/09/17 12:00 05/19/17 11:59 Sodium Chloride 1,000 ml @ 100 mls/hr Q10H IV 05/09/17 08:30 06/08/17 08:29 05/09/17 08:27 100 MLS/HR
--- NOTE | 2017-05-09 12:25 | GASTROINTESTINAL CONSULTATION ---
DATE OF CONSULTATION: 05/09/2017 REFERRED BY: Dr. Sandoval. I was asked by Dr. Sandoval to consult on this gentleman for evaluation of abdominal pain and abnormal liver enzymes. The patient is a 67-year-old, who is in extremely good health on no outpatient medications, who was doing well until . He states he was eating a large burrito and afterward developed epigastric abdominal pain with some radiation to his right side and back. He thought the pain would go away, but eventually it got very severe and he presented to the Emergency Room, where he was found to have abnormal liver enzymes. Further evaluation revealed gallstones on ultrasound. When he presented to the Emergency Room, he was extremely hypotensive, requiring 3 liters of saline for resuscitation. Upon initial presentation, his white blood cell count was 12 and quickly payton to 18,000. He denies any alcohol use. He denies any trouble with heartburn or dysphagia. He does not take a lot of nonsteroidal anti-inflammatory type medications. PAST MEDICAL HISTORY: I reviewed his medical records and past medical history and he has no significant past medical history. FAMILY HISTORY: Not significant for gastrointestinal disease. SOCIAL HISTORY: Only significant for rare social alcohol usage and being a former smoker. ALLERGIES: He denies any drug allergies. MEDICATIONS: He is on no outpatient medications. REVIEW OF SYSTEMS: As above. Otherwise, he denies any change in vision or hearing. He has had no productive cough, palpitations, or change in mental status. He denies any depression. He denies any joint swelling or lower extremity swelling. He has had no shortness of breath. He has had no decrease in exercise tolerance. He has had no heat or cold intolerance. He denies any excessive thirst or urination. He has had no bruising or bleeding. He denies any rashes, pruritus or icterus. PHYSICAL EXAMINATION: GENERAL: Reveals a pleasant gentleman, lying in bed in no distress. VITAL SIGNS: His most recent temperature is 36.5, blood pressure is 110/60, and pulse is 47. SKIN: Anicteric. EYES: Show anicteric sclerae. MOUTH: Clear of lesions with moist mucous membranes. NECK: Supple. No adenopathy. CHEST: Clear with no wheezing. HEART: Regular rate and rhythm with no murmurs. ABDOMEN: Soft with good bowel sounds. There is no organomegaly, masses or rebound tenderness noted. EXTREMITIES: Warm with good distal pulses and no edema. NEUROLOGIC: He is grossly intact. Alert and oriented x3. LABORATORY DATA: Shows a white blood cell count of 18,000, hemoglobin of 12.3 and a platelet count of 159,000. Liver enzymes show a total bilirubin of 3.2 with a direct of 1.6. AST 166, ALT of 331 and alkaline phosphatase of 155. Lipase was normal. Imaging revealed cholelithiasis. Common bile duct was normal size. IMPRESSION: A 67-year-old gentleman with what seems to be a likely biliary source of sepsis. His bile duct is not dilated, but this could be early on in his disease. He certainly behaves in such a way as having choledocholithiasis with biliary sepsis. It is unclear whether he passed a stone or if a stone is acting like a ball-valve. The fact that he needed fluid resuscitation, his elevated bilirubin and small stones in the gallbladder all are consistent with gallstone and biliary disease. I agree with broad spectrum antibiotics, continuing his fluids and keeping him on just clears. He has no signs of pancreatitis. I think it would be helpful to check an MRCP looking for intraductal stones. At this point, he does not need an emergent ERCP; however, he may need it sooner than later depending on his clinical course and also should be evaluated for gallbladder removal down the line though this is not an emergent issue either. We will continue to follow him. MITCHELL
[2017-05-09] MEDS: AMPICILLIN/SULBACTAM SOD INJ 3,000 MG in SODIUM CHLORIDE 0.9% 100ML 100 ML IV SCH ×2 (13:19→17:01)
[2017-05-09] MEDS ORDERED: KETOROLAC TROMETHAMINE 15 MG/ML VIAL IV. PRN (16:30)
[2017-05-09] MEDS ORDERED: HYDROmorphone INJ 1 MG/ML SYR IV PRN (16:30)
--- NOTE | 2017-05-09 20:05 | DIAGNOSTIC IMAGING REPORT ---
MRCP HISTORY: Elevated LFTs. r/o biliary obstruction, cholelithiasis. TECHNIQUE: MRCP of the abdomen was performed according to standard departmental protocol without the use of contrast. COMPARISON STUDY: Abdominal ultrasound 05/09/2017. FINDINGS: Multiple small gallstones. No gallbladder wall thickening. Trace pericholecystic fluid. Trace bilateral pleural effusions. The liver, spleen, adrenal glands, and pancreas are unremarkable. Small bilateral renal T2 hyperintense lesions consistent with cysts. No hydronephrosis. Trace bilateral first edema. No retroperitoneal lymphadenopathy. Small diverticulum at the second portion of the duodenum. No filling defects within the common bile duct to suggest a stone. No intrahepatic bile duct dilatation. The gallbladder is mildly distended. IMPRESSION: 1. The gallbladder is mildly distended and contains multiple small stones. No gallbladder wall thickening. Trace nonspecific pericholecystic fluid. 2. Normal caliber common bile duct. No stones within the common bile duct. 3. Trace bilateral pleural effusions. Electronically signed by: Moises Rausch M.D. 05/09/2017 8:03 PM Dictated Date/Time: 05/09/2017 7:57 PM
[2017-05-09] MEDS ORDERED: OXYCODONE HCL IR 5 MG TAB (IMMEDIATE RELEASE) PO PRN (20:30)
[2017-05-10] VITALS (10 sets, daily range): BP systolic 116–147; BP diastolic 68–100; PULSE 57–71; TEMP 36.5–36.9; O2SAT 93–98
[2017-05-10] MEDS: AMPICILLIN/SULBACTAM SOD INJ 3,000 MG in SODIUM CHLORIDE 0.9% 100ML 100 ML IV SCH ×4 (00:04→17:56)
[2017-05-10 05:13] LABS: BASO % 0.1 %; BASO ABS # 0.01 K/uL (0-0.2); COMPLETE YES; EOS % 1.2 %; HEMATOCRIT 34.3 % (42-52); IG% 0.3 %; LYMPH ABS # 1.23 K/uL (1.2-3.4); MEAN CELL VOLUME 91.5 fL (80-100); MEAN CORPUSCULAR HEMOGLOBIN 31.5 pg (25-34); MEAN CORPUSCULAR HGB CONC 34.4 g/dl (32-36); MEAN PLATELET VOLUME 11.2 fL (7.4-10.4); MONO % 11.6 %; NEUT % 73.8 %; PLATELET COUNT 146 K/uL (130-400); RED BLOOD COUNT 3.75 M/uL (4.7-6.1); WHITE BLOOD COUNT 9.46 K/uL (4.8-10.8)
[2017-05-10] MEDS: SODIUM CHLORIDE 0.9% 1000ML 1,000 ML IV SCH ×2 (05:47→15:57)
[2017-05-10 05:48] LABS: BUN/CREATININE RATIO 16.3 (10-20); CALCIUM 7.8 mg/dl (8.5-10.1); CREATININE 0.64 mg/dl (0.60-1.40); POTASSIUM 3.7 mmol/L (3.5-5.1)
[2017-05-10] MEDS: PANTOprazole INJ 40 MG in SYRINGE 0 ML IV SCH (07:57)
--- NOTE | 2017-05-10 10:48 | Critical Care Progress Note ---
Critical Care Progress Note Date of Service May 10, 2017. Attending Dr. Neely Subjective asymptomatic this am, denies any pain or NV, no change in BM, no palpitation, no fever or chills. tolerating oral intake. Objective one episode yesterday with RUQ pain resolved with Toradol. no Nausea. Current SOFA Score SOFA Score Response (Comments) Value PaO2/FiO2 (mmHg) < 400 1 SaO2 / FIO2 221 - 301 1 Platelets (x10) > 150 0 Bilirubin (mg/dL) 1.2 - 1.9 1 [place] Coma Score 15 0 Level of Hypotension No Hypotension 0 Creatinine (mg/dL) < 1.2 0 Total 3 Assessment & Plan 1- acute non obstructing cholangitis. 2- Choledocholithiasis. with sludge in the GB per MRCP. 3- small pleural effusion likely related to fluid resuscitation. 4- sepsis , resolved. normalized WBC, no fever or constitutional symptoms. Plan: 1- continue Unasyn. 2- appreciate Dr. Bello and Dr. Munoz input. 3- MRCP results noted for non obstructing cholelithiasis . 4- IVF. 5- clear liquids unless advance by GI. 6- ambulate. 7- DVt prophylaxis. 8- regular floor. 9- he is from [place], and he will follow up with his MD in that area. 10- full code. discussed with the staff on rounds in details. CCT 35 min. Consults & Procedures Consultants: Gi and CCM Procedures: MRCP. Data Medications: Current Inpatient Medications Medications (Trade) Dose Ordered Sig/Gage Route Start Time Stop Time Status Last Admin Dose Admin Pantoprazole Sodium 40 mg/ Syringe 10 ml @ 5 mls/min DAILY IV 05/09/17 09:00 06/08/17 08:59 05/10/17 07:57 5 MLS/MIN Norepinephrine Bitartrate 8 mg/ Dextrose 508 ml @ 0 mls/hr Q0M PRN IV 05/09/17 05:50 06/08/17 05:49 05/09/17 06:45 30.2 MLS/HR Ampicillin Sodium/ Sulbactam Sodium 3000 mg/Sodium Chloride 108 ml @ 200 mls/hr Q6H IV 05/09/17 12:00 05/19/17 11:59 05/10/17 05:47 200 MLS/HR Sodium Chloride 1,000 ml @ 100 mls/hr Q10H IV 05/09/17 08:30 06/08/17 08:29 05/10/17 05:47 100 MLS/HR Ketorolac Tromethamine (Toradol Inj) 15 mg Q6H PRN IV. 05/09/17 16:30 05/14/17 16:29 05/09/17 17:02 15 MG Hydromorphone HCl (Dilaudid Inj) 1 mg Q6 PRN IV 05/09/17 16:30 05/23/17 16:29 Oxycodone HCl (Roxicodone Immediate Rel Tab) 5 mg Q4H PRN PO 05/09/17 20:30 05/23/17 20:29 05/09/17 21:01 5 MG Vital Signs: Date Time Temp Pulse Resp B/P (MAP) Pulse Ox O2 Delivery O2 Flow Rate FiO2 05/10/17 10:01 61 21 116/73 (87) 96 Room Air 05/10/17 08:01 36.9 64 21 125/73 (90) 95 Room Air 05/10/17 08:00 Room Air 05/10/17 07:01 60 21 137/84 (101) 95 Room Air 05/10/17 06:00 71 23 147/92 (110) 93 Room Air 05/10/17 04:00 98 Room Air 05/10/17 04:00 36.8 71 19 143/77 (99) 94 Room Air 05/10/17 02:00 57 21 138/73 (94) 94 Room Air 05/10/17 00:01 36.5 61 20 123/73 (90) 93 Room Air 05/09/17 23:59 95 Room Air 05/09/17 22:00 68 15 118/90 (99) 95 Room Air 05/09/17 20:00 96 Room Air 05/09/17 20:00 36.7 59 22 132/70 (90) 95 Room Air 05/09/17 18:01 59 22 123/81 (95) 97 Room Air 05/09/17 16:01 36.5 63 16 112/74 (87) 100 Room Air 05/09/17 16:00 Room Air 05/09/17 15:02 55 23 121/79 (93) 99 Room Air 05/09/17 14:01 49 16 118/66 (83) 97 Room Air 05/09/17 13:31 49 21 118/68 (85) 98 Room Air 05/09/17 13:01 52 21 120/70 (87) 95 Room Air 05/09/17 12:01 36.5 64 18 122/65 (84) 97 Room Air 05/09/17 12:00 Room Air 05/09/17 11:01 54 20 110/67 (81) 98 Room Air Laboratory Results: Last 24 Hours Test 05/09/17 16:42 05/09/17 16:46 05/10/17 04:49 Total Bilirubin 1.7 mg/dl 1.1 mg/dl Direct Bilirubin 1.0 mg/dl 0.6 mg/dl Aspartate Amino Transf (AST/SGOT) 90 U/L 60 U/L Alanine Aminotransferase (ALT/SGPT) 229 U/L 183 U/L Alkaline Phosphatase 124 U/L 114 U/L Total Protein 5.8 gm/dl 5.7 gm/dl Albumin 2.9 gm/dl 2.8 gm/dl Bedside Glucose 88 mg/dl White Blood Count 9.46 K/uL Red Blood Count 3.75 M/uL Hemoglobin 11.8 g/dL Hematocrit 34.3 % Mean Corpuscular Volume 91.5 fL Mean Corpuscular Hemoglobin 31.5 pg Mean Corpuscular Hemoglobin Concent 34.4 g/dl Platelet Count 146 K/uL Mean Platelet Volume 11.2 fL Neutrophils (%) (Auto) 73.8 % Lymphocytes (%) (Auto) 13.0 % Monocytes (%) (Auto) 11.6 % Eosinophils (%) (Auto) 1.2 % Basophils (%) (Auto) 0.1 % Neutrophils # (Auto) 6.98 K/uL Lymphocytes # (Auto) 1.23 K/uL Monocytes # (Auto) 1.10 K/uL Eosinophils # (Auto) 0.11 K/uL Basophils # (Auto) 0.01 K/uL RDW Standard Deviation 44.9 fL RDW Coefficient of Variation 13.5 % Immature Granulocyte % (Auto) 0.3 % Immature Granulocyte # (Auto) 0.03 K/uL Sodium Level 141 mmol/L Potassium Level 3.7 mmol/L Chloride Level 112 mmol/L Carbon Dioxide Level 21 mmol/L Anion Gap 8.0 mmol/L Blood Urea Nitrogen 10 mg/dl Creatinine 0.64 mg/dl Est Creatinine Clear Calc Drug Dose 116.0 ml/min Estimated GFR () 115.8 Estimated GFR (Non- 99.9 BUN/Creatinine Ratio 16.3 Random Glucose 94 mg/dl Calcium Level 7.8 mg/dl Lipase 371 U/L
--- NOTE | 2017-05-10 11:35 | GASTROENTEROLOGY PROGRESS NOTE ---
DATE: 05/10/2017 SUBJECTIVE: Matilde feels great today. He denies any abdominal pain. He has had no nausea, vomiting, icterus or fevers. I reviewed his MRCP and also reviewed the results with the patient and there is no evidence of retained biliary stone. He does have multiple small stones in his gallbladder, however. PHYSICAL EXAMINATION: GENERAL: This visit, he is comfortable, in no distress. VITAL SIGNS: His most recent temperature is 36.9, pulse is 64, blood pressure is 125/73. SKIN: Anicteric. HEENT: Eyes show anicteric sclerae. Mouth clear of lesions. NECK: Supple. CHEST: Clear. HEART: Regular rate and rhythm. ABDOMEN: Benign with no tenderness, rebound or masses. He has good bowel sounds. EXTREMITIES: Warm with good distal pulses. NEUROLOGIC: He is grossly intact. Alert and oriented x3. LABORATORY DATA: Show improvement with his white count down from 18,000 to 9000; and his total bilirubin is now 1.1, down from 3.2 with alkaline phosphatase that is normal now at 114; ALT 183, AST of 60. IMPRESSION: The patient is status post episode of biliary sepsis, appears to have passed the stone and he still has multiple stones in his gallbladder. I would start slowly and advance his diet by giving him clears see how he tolerates this and then advance it tomorrow. If he tolerates this, he can go home to complete his outpatient course of antibiotics. I do not think he needs an ERCP at this point, but should be seen by surgery to discuss risks and benefits of having his gallbladder removed. I have discussed this with him and he is agreeable with this. MITCHELL
--- NOTE | 2017-05-10 12:03 | Progress Note ---
Medicine Progress Note Date & Time of Visit: May 10, 2017 at 11:58. Subjective patient states he feels much better today denies dizziness, fever/chills no abdominal pain ,nausea no chest pain, dyspnea no other symptoms Objective Last 8 Hrs Date Time Temp Pulse Resp B/P (MAP) Pulse Ox O2 Delivery O2 Flow Rate FiO2 05/10/17 10:01 61 21 116/73 (87) 96 Room Air 05/10/17 08:01 36.9 64 21 125/73 (90) 95 Room Air 05/10/17 08:00 Room Air 05/10/17 07:01 60 21 137/84 (101) 95 Room Air 05/10/17 06:00 71 23 147/92 (110) 93 Room Air 05/10/17 04:00 98 Room Air 05/10/17 04:00 36.8 71 19 143/77 (99) 94 Room Air Physical Exam: General- oriented x 3, not in distress, speaks in sentences with no effort Eyes- anicteric Neck- no JVD Lungs- clear breath sounds bilaterally,no rales/wheezes Heart- regular rhythm; no murmur, normal rate Abdomen- normal bowel sounds, non distended, soft, nontender, no Salter's sign Extremities- no pretibial edema, no calf tenderness Neuro- alert, oriented x 3;no gross focal deficits Skin- warm & dry Laboratory Results: Last 24 Hours Test 05/09/17 16:42 05/09/17 16:46 05/10/17 04:49 Total Bilirubin 1.7 mg/dl 1.1 mg/dl Direct Bilirubin 1.0 mg/dl 0.6 mg/dl Aspartate Amino Transf (AST/SGOT) 90 U/L 60 U/L Alanine Aminotransferase (ALT/SGPT) 229 U/L 183 U/L Alkaline Phosphatase 124 U/L 114 U/L Total Protein 5.8 gm/dl 5.7 gm/dl Albumin 2.9 gm/dl 2.8 gm/dl Bedside Glucose 88 mg/dl White Blood Count 9.46 K/uL Red Blood Count 3.75 M/uL Hemoglobin 11.8 g/dL Hematocrit 34.3 % Mean Corpuscular Volume 91.5 fL Mean Corpuscular Hemoglobin 31.5 pg Mean Corpuscular Hemoglobin Concent 34.4 g/dl Platelet Count 146 K/uL Mean Platelet Volume 11.2 fL Neutrophils (%) (Auto) 73.8 % Lymphocytes (%) (Auto) 13.0 % Monocytes (%) (Auto) 11.6 % Eosinophils (%) (Auto) 1.2 % Basophils (%) (Auto) 0.1 % Neutrophils # (Auto) 6.98 K/uL Lymphocytes # (Auto) 1.23 K/uL Monocytes # (Auto) 1.10 K/uL Eosinophils # (Auto) 0.11 K/uL Basophils # (Auto) 0.01 K/uL RDW Standard Deviation 44.9 fL RDW Coefficient of Variation 13.5 % Immature Granulocyte % (Auto) 0.3 % Immature Granulocyte # (Auto) 0.03 K/uL Sodium Level 141 mmol/L Potassium Level 3.7 mmol/L Chloride Level 112 mmol/L Carbon Dioxide Level 21 mmol/L Anion Gap 8.0 mmol/L Blood Urea Nitrogen 10 mg/dl Creatinine 0.64 mg/dl Est Creatinine Clear Calc Drug Dose 116.0 ml/min Estimated GFR () 115.8 Estimated GFR (Non- 99.9 BUN/Creatinine Ratio 16.3 Random Glucose 94 mg/dl Calcium Level 7.8 mg/dl Lipase 371 U/L Assessment & Plan SEPTIC SHOCK LIKELY BILIARY TRACT SOURCE, PASSED BILIARY STONE? CHOLANGITIS? - off Levophed - blood cultures: negative so far - MRCP ordered: IMPRESSION: 1. The gallbladder is mildly distended and contains multiple small stones. No gallbladder wall thickening. Trace nonspecific pericholecystic fluid. 2. Normal caliber common bile duct. No stones within the common bile duct. 3. Trace bilateral pleural effusions. - remains normotensive, afebrile, WBC improved to 9 blood cultures: negative so far LFTs improving - continue empiric Unasyn IV Day 2 clear liquids--> advance diet as tolerated discussed with GI Dr. Bello and Dr. Neely - will place Gen Surg consult re: opinion on cholecystitis VTE PROPHYLAXIS Heparin for now Ambulate when able. RESUSCITATION STATUS "Level 1" (full resuscitation). DISPOSITION transfer to Med/Surg Anticipate discharge to home in 1-2 days Medical follow-up with Dr. Morelos in [place]. . Current Inpatient Medications: Current Inpatient Medications Medications (Trade) Dose Ordered Sig/Gage Route Start Time Stop Time Status Last Admin Dose Admin Pantoprazole Sodium 40 mg/ Syringe 10 ml @ 5 mls/min DAILY IV 05/09/17 09:00 06/08/17 08:59 05/10/17 07:57 5 MLS/MIN Norepinephrine Bitartrate 8 mg/ Dextrose 508 ml @ 0 mls/hr Q0M PRN IV 05/09/17 05:50 06/08/17 05:49 05/09/17 06:45 30.2 MLS/HR Ampicillin Sodium/ Sulbactam Sodium 3000 mg/Sodium Chloride 108 ml @ 200 mls/hr Q6H IV 05/09/17 12:00 05/19/17 11:59 05/10/17 11:37 200 MLS/HR Sodium Chloride 1,000 ml @ 60 mls/hr [id number] IV 05/09/17 08:30 06/08/17 08:29 05/10/17 05:47 100 MLS/HR Ketorolac Tromethamine (Toradol Inj) 15 mg Q6H PRN IV. 05/09/17 16:30 05/14/17 16:29 05/09/17 17:02 15 MG Hydromorphone HCl (Dilaudid Inj) 1 mg Q6 PRN IV 05/09/17 16:30 05/23/17 16:29 Oxycodone HCl (Roxicodone Immediate Rel Tab) 5 mg Q4H PRN PO 05/09/17 20:30 05/23/17 20:29 05/09/17 21:01 5 MG
[2017-05-10] MEDS: HEPARIN SOD 5000 UNIT/0.5 ML CARP SQ SCH ×3 (13:49→21:03)
[2017-05-11] MEDS: AMPICILLIN/SULBACTAM SOD INJ 3,000 MG in SODIUM CHLORIDE 0.9% 100ML 100 ML IV SCH ×3 (00:02→12:17)
[2017-05-11 00:11] VITALS: BP 151/80; PULSE 63; TEMP 36.6; O2SAT 96
[2017-05-11] MEDS: HEPARIN SOD 5000 UNIT/0.5 ML CARP SQ SCH ×2 (05:47→13:33)
[2017-05-11 06:39] LABS: BASO % 0.1 %; BASO ABS # 0.01 K/uL (0-0.2); COMPLETE YES; EOS % 1.2 %; HEMATOCRIT 33.6 % (42-52); IG% 0.2 %; LYMPH % 13.8 %; LYMPH ABS # 1.14 K/uL (1.2-3.4); MEAN CELL VOLUME 90.1 fL (80-100); MEAN CORPUSCULAR HEMOGLOBIN 30.8 pg (25-34); MEAN CORPUSCULAR HGB CONC 34.2 g/dl (32-36); MEAN PLATELET VOLUME 11.2 fL (7.4-10.4); MONO % 8.4 %; NEUT % 76.3 %; PLATELET COUNT 148 K/uL (130-400); RED BLOOD COUNT 3.73 M/uL (4.7-6.1); WHITE BLOOD COUNT 8.24 K/uL (4.8-10.8)
[2017-05-11 07:00] LABS: CALCIUM 8.1 mg/dl (8.5-10.1); CREATININE 0.63 mg/dl (0.60-1.40); POTASSIUM 3.6 mmol/L (3.5-5.1)
[2017-05-11 07:46] VITALS: BP 157/83; PULSE 68; TEMP 36.8; O2SAT 95
[2017-05-11] MEDS: SODIUM CHLORIDE 0.9% 1000ML 1,000 ML IV SCH (08:33)
[2017-05-11] MEDS: PANTOprazole INJ 40 MG in SYRINGE 0 ML IV SCH (08:34)
--- NOTE | 2017-05-11 11:13 | Gastroenterology Progress Note ---
Progress Note Date of Service: May 11, 2017 Subjective Pt evaluation today including: conversation w/ patient, physical exam, chart review, lab review, review of inpatient medication list Pt feels well, afebrile overnight, denies any CP, SOB, abd pain, n/v. He tolerated coffee this AM though made NPO after that as Surgery was consulted for possible cholecystectomy. LFTs noted to be trending down. MRCP w normal caliber CBD w/o stones, but several stones in gallbladder. Review of Systems Constitutional: No fever, No chills Respiratory: No cough, No shortness of breath Cardiac: No chest pain Abdomen: No pain, No nausea, No vomiting Skin: No rash, No jaundice Medications Current Inpatient Medications Medications (Trade) Dose Ordered Sig/Gage Route Start Time Stop Time Status Last Admin Dose Admin Pantoprazole Sodium 40 mg/ Syringe 10 ml @ 5 mls/min DAILY IV 05/09/17 09:00 06/08/17 08:59 05/11/17 08:34 5 MLS/MIN Norepinephrine Bitartrate 8 mg/ Dextrose 508 ml @ 0 mls/hr Q0M PRN IV 05/09/17 05:50 06/08/17 05:49 05/09/17 06:45 30.2 MLS/HR Ampicillin Sodium/ Sulbactam Sodium 3000 mg/Sodium Chloride 108 ml @ 200 mls/hr Q6H IV 05/09/17 12:00 05/19/17 11:59 05/11/17 05:47 200 MLS/HR Sodium Chloride 1,000 ml @ 60 mls/hr [id number] IV 05/09/17 08:30 06/08/17 08:29 05/10/17 15:57 60 MLS/HR Ketorolac Tromethamine (Toradol Inj) 15 mg Q6H PRN IV. 05/09/17 16:30 05/14/17 16:29 05/09/17 17:02 15 MG Hydromorphone HCl (Dilaudid Inj) 1 mg Q6 PRN IV 05/09/17 16:30 05/23/17 16:29 Oxycodone HCl (Roxicodone Immediate Rel Tab) 5 mg Q4H PRN PO 05/09/17 20:30 05/23/17 20:29 05/09/17 21:01 5 MG Heparin Sodium (Porcine) (Heparin Sq 5000 Unit/0.5ml) 5,000 unit Q8 SQ 05/10/17 14:00 06/09/17 13:59 Objective Vital Signs Date Time Temp Pulse Resp B/P (MAP) Pulse Ox O2 Delivery O2 Flow Rate FiO2 05/11/17 08:00 Room Air 05/11/17 07:46 36.8 68 20 157/83 (107) 95 Room Air 05/11/17 00:11 36.6 63 18 151/80 (103) 96 Room Air 05/11/17 00:00 Room Air 05/10/17 16:00 Room Air 05/10/17 15:42 36.6 65 16 130/68 (88) 95 05/10/17 13:01 36.9 66 18 98 05/10/17 12:01 66 18 140/100 (113) 98 Room Air 05/10/17 12:00 Room Air Physical Exam General Appearance: WD/WN, no apparent distress Eyes: normal inspection, PERRL, EOMI Neck: supple, no JVD, trachea midline Respiratory/Chest: normal breath sounds, no respiratory distress, no accessory muscle use Cardiovascular: regular rate, rhythm, no gallop, no murmur Abdomen: normal bowel sounds, non tender, soft Extremities: normal inspection, no pedal edema, no calf tenderness Neurologic/Psych: alert, normal mood/affect, oriented x 3 Skin: normal color, no jaundice, no rash Laboratory Results Last 24 Hours Test 05/11/17 06:15 White Blood Count 8.24 K/uL Red Blood Count 3.73 M/uL Hemoglobin 11.5 g/dL Hematocrit 33.6 % Mean Corpuscular Volume 90.1 fL Mean Corpuscular Hemoglobin 30.8 pg Mean Corpuscular Hemoglobin Concent 34.2 g/dl Platelet Count 148 K/uL Mean Platelet Volume 11.2 fL Neutrophils (%) (Auto) 76.3 % Lymphocytes (%) (Auto) 13.8 % Monocytes (%) (Auto) 8.4 % Eosinophils (%) (Auto) 1.2 % Basophils (%) (Auto) 0.1 % Neutrophils # (Auto) 6.28 K/uL Lymphocytes # (Auto) 1.14 K/uL Monocytes # (Auto) 0.69 K/uL Eosinophils # (Auto) 0.10 K/uL Basophils # (Auto) 0.01 K/uL RDW Standard Deviation 42.7 fL RDW Coefficient of Variation 13.0 % Immature Granulocyte % (Auto) 0.2 % Immature Granulocyte # (Auto) 0.02 K/uL Sodium Level 142 mmol/L Potassium Level 3.6 mmol/L Chloride Level 109 mmol/L Carbon Dioxide Level 25 mmol/L Anion Gap 8.0 mmol/L Blood Urea Nitrogen 4 mg/dl Creatinine 0.63 mg/dl Est Creatinine Clear Calc Drug Dose 117.8 ml/min Estimated GFR () 116.5 Estimated GFR (Non- 100.5 BUN/Creatinine Ratio 7.0 Random Glucose 96 mg/dl Calcium Level 8.1 mg/dl Total Bilirubin 0.8 mg/dl Direct Bilirubin 0.4 mg/dl Aspartate Amino Transf (AST/SGOT) 33 U/L Alanine Aminotransferase (ALT/SGPT) 121 U/L Alkaline Phosphatase 109 U/L Total Protein 5.7 gm/dl Albumin 2.7 gm/dl Assessment and Plan Pt is a 67 y/o seen for possible biliary sepsis, treated w Unasyn and leukocytosis resolving. He has several gallstones w elevated LFTs, though CBD normal caliber and no choledocholithiasis on MRCP. Afebrile overnight, no jaundice, abd pain, n/v. LFTs trending down, and Lipase remained normal. - No indication for ERCP procedure - Surgery consulted for possible cholecystectomy. Though pt may prefer to have this done in [facility] where he's originally from (visiting family at [place] ). - NPO till Surgery sees him. - GI will sign off, pls call for additional questions/concerns. Attg addendum: I interviewed and examined pt, reviewed chart and labs. Pt without abd pain, LFT's improving. No need for ERCP; defer further care to surgery service. Would consider cholangiogram with lap oli. Will sign off, please call as needed.
--- NOTE | 2017-05-11 11:24 | Surgery Consultation ---
Consultation Date of Consultation: May 11, 2017. Attending Physician: Brice Davidson MD Reason for Consultation: Gallstones (Lela Stuart PA-C) History of Present Illness Chidi is a 67 year-old male who presented to emergency department on Thursday with complaint of abdominal pain, nausea, chills, and lightheadedness. He was found to have systolic BP in the high 70's and hypotension persisted with 2L NSS. He was found to have sepsis with possible biliary origin. Leukocytosis of 12.70K which quickly payton to 18K. An abdominal ultrasound showed gallstones but no evidence of gallbladder wall thickness or pericholecystic fluid. CBD measured 5 mm. An MRCP showed no evidence of choledocholithiasis. He was started on IV Unasyn and IV fluids and kept on clear liquids. His labs have improved with resolving leukocytosis and total bilirubin within normal limits. LFTS improving and Lipase has been within normal limits. Our services consulted for discussion of cholecystectomy. Patient does not live in the area and is visiting his daughter here in [place]. Labs today: WBC of 8.24 Total bili 0.8 Direct bili- 0.4 Ast- 33 Alt- 121 Alk Phos- 109 (Lela Stuart PA-C) Past Medical/Surgical History Medical Problems: (1) Ascending cholangitis Status: Acute (Lela Stuart PA-C) Family History Alzheimer's disease MOTHER Coronary artery disease FATHER (Lela Stuart PA-C) Alzheimer's disease MOTHER Coronary artery disease FATHER (Walter Pino M.D.) Social History Smoking Status: Former Smoker Smokeless Tobacco Use: No Alcohol Use: occasionally Marital Status: Housing Status: lives with significant other (Lela Stuart PA-C) Allergies Coded Allergies: No Known Allergies (Unverified , 05/09/17) Home Medications No Active Prescriptions or Reported Meds Current Inpatient Medications Current Inpatient Medications Medications (Trade) Dose Ordered Sig/Gage Route Start Time Stop Time Status Last Admin Dose Admin Pantoprazole Sodium 40 mg/ Syringe 10 ml @ 5 mls/min DAILY IV 05/09/17 09:00 06/08/17 08:59 05/11/17 08:34 5 MLS/MIN Norepinephrine Bitartrate 8 mg/ Dextrose 508 ml @ 0 mls/hr Q0M PRN IV 05/09/17 05:50 06/08/17 05:49 05/09/17 06:45 30.2 MLS/HR Ampicillin Sodium/ Sulbactam Sodium 3000 mg/Sodium Chloride 108 ml @ 200 mls/hr Q6H IV 05/09/17 12:00 05/19/17 11:59 05/11/17 05:47 200 MLS/HR Sodium Chloride 1,000 ml @ 60 mls/hr [id number] IV 05/09/17 08:30 06/08/17 08:29 05/10/17 15:57 60 MLS/HR Ketorolac Tromethamine (Toradol Inj) 15 mg Q6H PRN IV. 05/09/17 16:30 05/14/17 16:29 05/09/17 17:02 15 MG Hydromorphone HCl (Dilaudid Inj) 1 mg Q6 PRN IV 05/09/17 16:30 05/23/17 16:29 Oxycodone HCl (Roxicodone Immediate Rel Tab) 5 mg Q4H PRN PO 05/09/17 20:30 05/23/17 20:29 05/09/17 21:01 5 MG Heparin Sodium (Porcine) (Heparin Sq 5000 Unit/0.5ml) 5,000 unit Q8 SQ 05/10/17 14:00 06/09/17 13:59 (eLla Stuart ., PA-C) Review of Systems Constitutional: No chills, No sweats Respiratory: No cough Abdomen: No pain, No nausea, No vomiting, No diarrhea, No constipation, No GI bleeding Integumentary: No rash (Lela Stuart ., PA-C) Physical Exam Date Time Temp Pulse Resp B/P (MAP) Pulse Ox O2 Delivery O2 Flow Rate FiO2 05/11/17 08:00 Room Air 05/11/17 07:46 36.8 68 20 157/83 (107) 95 Room Air 05/11/17 00:11 36.6 63 18 151/80 (103) 96 Room Air 05/11/17 00:00 Room Air 05/10/17 16:00 Room Air 05/10/17 15:42 36.6 65 16 130/68 (88) 95 05/10/17 13:01 36.9 66 18 98 05/10/17 12:01 66 18 140/100 (113) 98 Room Air 05/10/17 12:00 Room Air 05/10/17 10:01 61 21 116/73 (87) 96 Room Air General Appearance: WD/WN, no apparent distress Head: normocephalic, atraumatic Eyes: sclerae normal ENT: hearing grossly normal Neck: trachea midline Respiratory/Chest: lungs clear, normal breath sounds, no respiratory distress, no accessory muscle use Cardiovascular: regular rate, rhythm, no murmur Abdomen/GI: non tender, soft, no organomegaly, no pulsatile mass Neurologic/Psych: alert, normal mood/affect, oriented x 3 Skin: normal color, warm/dry, no rash (Lela Stuart ., PA-C) Laboratory Results Last 24 Hours Test 05/11/17 06:15 White Blood Count 8.24 K/uL Red Blood Count 3.73 M/uL Hemoglobin 11.5 g/dL Hematocrit 33.6 % Mean Corpuscular Volume 90.1 fL Mean Corpuscular Hemoglobin 30.8 pg Mean Corpuscular Hemoglobin Concent 34.2 g/dl Platelet Count 148 K/uL Mean Platelet Volume 11.2 fL Neutrophils (%) (Auto) 76.3 % Lymphocytes (%) (Auto) 13.8 % Monocytes (%) (Auto) 8.4 % Eosinophils (%) (Auto) 1.2 % Basophils (%) (Auto) 0.1 % Neutrophils # (Auto) 6.28 K/uL Lymphocytes # (Auto) 1.14 K/uL Monocytes # (Auto) 0.69 K/uL Eosinophils # (Auto) 0.10 K/uL Basophils # (Auto) 0.01 K/uL RDW Standard Deviation 42.7 fL RDW Coefficient of Variation 13.0 % Immature Granulocyte % (Auto) 0.2 % Immature Granulocyte # (Auto) 0.02 K/uL Sodium Level 142 mmol/L Potassium Level 3.6 mmol/L Chloride Level 109 mmol/L Carbon Dioxide Level 25 mmol/L Anion Gap 8.0 mmol/L Blood Urea Nitrogen 4 mg/dl Creatinine 0.63 mg/dl Est Creatinine Clear Calc Drug Dose 117.8 ml/min Estimated GFR () 116.5 Estimated GFR (Non- 100.5 BUN/Creatinine Ratio 7.0 Random Glucose 96 mg/dl Calcium Level 8.1 mg/dl Total Bilirubin 0.8 mg/dl Direct Bilirubin 0.4 mg/dl Aspartate Amino Transf (AST/SGOT) 33 U/L Alanine Aminotransferase (ALT/SGPT) 121 U/L Alkaline Phosphatase 109 U/L Total Protein 5.7 gm/dl Albumin 2.7 gm/dl ABDOMINAL ULTRASOUND, RIGHT UPPER QUADRANT HISTORY: elevated lfts. COMPARISON: None. FINDINGS: Pancreas: The pancreatic head and tail are obscured by overlying bowel gas. The remaining portions of the pancreas are within normal limits. Liver: Mildly enlarged measuring 21 cm. No hepatic masses. Gallbladder: Multiple small gallstones. No gallbladder wall thickening. CBD: 5 mm. Right kidney: No hydronephrosis. IMPRESSION: 1. Mild hepatomegaly. 2. Cholelithiasis. MRCP HISTORY: Elevated LFTs. r/o biliary obstruction, cholelithiasis. TECHNIQUE: MRCP of the abdomen was performed according to standard departmental protocol without the use of contrast. COMPARISON STUDY: Abdominal ultrasound 05/09/2017. FINDINGS: Multiple small gallstones. No gallbladder wall thickening. Trace pericholecystic fluid. Trace bilateral pleural effusions. The liver, spleen, adrenal glands, and pancreas are unremarkable. Small bilateral renal T2 hyperintense lesions consistent with cysts. No hydronephrosis. Trace bilateral first edema. No retroperitoneal lymphadenopathy. Small diverticulum at the second portion of the duodenum. No filling defects within the common bile duct to suggest a stone. No intrahepatic bile duct dilatation. The gallbladder is mildly distended. IMPRESSION: 1. The gallbladder is mildly distended and contains multiple small stones. No gallbladder wall thickening. Trace nonspecific pericholecystic fluid. 2. Normal caliber common bile duct. No stones within the common bile duct. 3. Trace bilateral pleural effusions. (Lela Stuart ., [place]-C) Assessment & Plan 67 year-old male with cholelithiasis who presented to emergency department on with abdominal pain, nausea, fevers, and chills who was found to have sepsis secondary to possible choledocholithiasis. Abdominal ultrasound showed cholelithiasis however CBD was normal at 5 mm and no evidence of acute cholecystitis. His labs showed leukocytosis, elevated total bilirubin at 3.2 and direct at 1.6 with elevated LFTs and alk phos on admission. MRCP showed no evidence of Choledocholithiasis. Today feeling well, abdominal pain resolved, leukocytosis resolved and total bilirubin wnl with improving direct bilirubin and LFTS. Plan: Discussed with patient recommendation of cholecystectomy given gallstones and the recent elevation in his LFTs and total bilirubin. Discussed with patient there is a chance this could occur again which could cause either cholangitis or pancreatitis. Patient is feeling much better and his leukocytosis has resolved and LFTs and direct bilirubin are improving. Total bilirubin within normal limits and abdominal examination benign. Patient would prefer to have cholecystectomy as an elective basis back at home in [place]. Would recommend advancing diet as tolerated Continue Medical management Discharge per medical service. Avoid fatty/greasy meals Thank you for the consultation and involving us in the care of this patient Dr. Pino has seen and examined patient, agrees with above (Lela Stuart ., [place]) I interviewed and examined this patient and I agree with the above note. He has cholelithiasis with elevated LFT's that are returning to normal. His pain and tenderness have resolved and his WBC is normal. He will need a cholecystectomy. We discussed the procedure with him. he would rather wait and have the procedure performed closer to his home. He does not have continuing symptoms of acute cholecystitis. I explained that if his symptoms return while he is in the area we can reevaluate but he should make an appointment to see a surgeon as soon as possible. (Walter Pino M.D.)
[2017-05-11 14:54] VITALS: BP 159/87; PULSE 61; TEMP 36.5; O2SAT 97
--- NOTE | 2017-05-11 15:41 | Progress Note ---
Medicine Progress Note Date & Time of Visit: May 11, 2017 at 15:18. Subjective seen ambulating in the room, comfortable, in good spirits states he feels much better denies abdominal pain, nausea, fever/chills had BMs today no dizziness, headache, chest pain, dyspnea, palpitations, dizziness no other symptoms Objective Last 8 Hrs Date Time Temp Pulse Resp B/P (MAP) Pulse Ox O2 Delivery O2 Flow Rate FiO2 05/11/17 14:54 36.5 61 18 159/87 (111) 97 Room Air 05/11/17 08:00 Room Air 05/11/17 07:46 36.8 68 20 157/83 (107) 95 Room Air Physical Exam: General- oriented x 3, not in distress, speaks in sentences with no effort Eyes- anicteric Neck- no JVD Lungs- clear BS bilaterally Heart- regular rhythm; no murmur, normal rate Abdomen- normal bowel sounds, non distended, soft, nontender, no Salter's sign Extremities- no pretibial edema, no calf tenderness Neuro- alert, oriented x 3;no gross focal deficits Skin- warm & dry Laboratory Results: Last 24 Hours Test 05/11/17 06:15 White Blood Count 8.24 K/uL Red Blood Count 3.73 M/uL Hemoglobin 11.5 g/dL Hematocrit 33.6 % Mean Corpuscular Volume 90.1 fL Mean Corpuscular Hemoglobin 30.8 pg Mean Corpuscular Hemoglobin Concent 34.2 g/dl Platelet Count 148 K/uL Mean Platelet Volume 11.2 fL Neutrophils (%) (Auto) 76.3 % Lymphocytes (%) (Auto) 13.8 % Monocytes (%) (Auto) 8.4 % Eosinophils (%) (Auto) 1.2 % Basophils (%) (Auto) 0.1 % Neutrophils # (Auto) 6.28 K/uL Lymphocytes # (Auto) 1.14 K/uL Monocytes # (Auto) 0.69 K/uL Eosinophils # (Auto) 0.10 K/uL Basophils # (Auto) 0.01 K/uL RDW Standard Deviation 42.7 fL RDW Coefficient of Variation 13.0 % Immature Granulocyte % (Auto) 0.2 % Immature Granulocyte # (Auto) 0.02 K/uL Sodium Level 142 mmol/L Potassium Level 3.6 mmol/L Chloride Level 109 mmol/L Carbon Dioxide Level 25 mmol/L Anion Gap 8.0 mmol/L Blood Urea Nitrogen 4 mg/dl Creatinine 0.63 mg/dl Est Creatinine Clear Calc Drug Dose 117.8 ml/min Estimated GFR () 116.5 Estimated GFR (Non- 100.5 BUN/Creatinine Ratio 7.0 Random Glucose 96 mg/dl Calcium Level 8.1 mg/dl Total Bilirubin 0.8 mg/dl Direct Bilirubin 0.4 mg/dl Aspartate Amino Transf (AST/SGOT) 33 U/L Alanine Aminotransferase (ALT/SGPT) 121 U/L Alkaline Phosphatase 109 U/L Total Protein 5.7 gm/dl Albumin 2.7 gm/dl Assessment & Plan SEPTIC SHOCK LIKELY BILIARY TRACT SOURCE, PASSED BILIARY STONE? CHOLANGITIS? - off Levophed - blood cultures: negative so far - MRCP ordered: IMPRESSION: 1. The gallbladder is mildly distended and contains multiple small stones. No gallbladder wall thickening. Trace nonspecific pericholecystic fluid. 2. Normal caliber common bile duct. No stones within the common bile duct. 3. Trace bilateral pleural effusions. - remains normotensive, afebrile, WBC improved to 9 blood cultures: negative so far LFTs improving - given Unasyn IV Day 3 clear liquids--> advance diet as tolerated - evaluated by Gastroenterology, no further interventions at this time, recommend General Surgery Referral for Cholecystectomy evaluation evaluated by General Surgery Dr. Pino, recommend outpatient Cholecystectomy - patient clinically improved afebrile, LFTs have improved blood cultures: negative - discharge on Moxifloxacin 400mg daily x 7 more days to complete 10 day course of antibiotics ff up with PCP in 3- 5 days ff up with General Surgeon in [place] for Cholecystectomy evaluation VTE PROPHYLAXIS Heparin Ambulate when able. RESUSCITATION STATUS "Level 1" (full resuscitation). DISPOSITION d/c home Medical follow-up with Dr. Morelos in [place]. ff up with General Surgeon in [place] Current Inpatient Medications: Current Inpatient Medications Medications (Trade) Dose Ordered Sig/Gage Route Start Time Stop Time Status Last Admin Dose Admin Pantoprazole Sodium 40 mg/ Syringe 10 ml @ 5 mls/min DAILY IV 05/09/17 09:00 06/08/17 08:59 05/11/17 08:34 5 MLS/MIN Norepinephrine Bitartrate 8 mg/ Dextrose 508 ml @ 0 mls/hr Q0M PRN IV 05/09/17 05:50 06/08/17 05:49 05/09/17 06:45 30.2 MLS/HR Ampicillin Sodium/ Sulbactam Sodium 3000 mg/Sodium Chloride 108 ml @ 200 mls/hr Q6H IV 05/09/17 12:00 05/19/17 11:59 05/11/17 12:17 200 MLS/HR Sodium Chloride 1,000 ml @ 60 mls/hr [id number] IV 05/09/17 08:30 06/08/17 08:29 05/10/17 15:57 60 MLS/HR Ketorolac Tromethamine (Toradol Inj) 15 mg Q6H PRN IV. 05/09/17 16:30 05/14/17 16:29 05/09/17 17:02 15 MG Hydromorphone HCl (Dilaudid Inj) 1 mg Q6 PRN IV 05/09/17 16:30 05/23/17 16:29 Oxycodone HCl (Roxicodone Immediate Rel Tab) 5 mg Q4H PRN PO 05/09/17 20:30 05/23/17 20:29 05/09/17 21:01 5 MG Heparin Sodium (Porcine) (Heparin Sq 5000 Unit/0.5ml) 5,000 unit Q8 SQ 05/10/17 14:00 06/09/17 13:59
[2017-05-11] MEDS ORDERED: MOXI400T2 PO (15:42)
--- NOTE | 2017-05-11 15:46 | Discharge Instructions ---
Discharge Instructions Date of Service May 11, 2017. Admission Reason for Admission: Sepsis Discharge Discharge Diagnosis / Problem: SEPSIS, POSSIBLE BILIARY TRACT INFECTION Discharge Goals Goal(s): Diagnostic testing, Therapeutic intervention Activity Recommendations Activity Limitations: as noted below (INCREASE ACTIVITY GRADUALLY TOLERATED) Lifting Limitations: until after follow-up appointment Exercise/Sports Limitations: until after follow-up appointment . Instructions / Follow-Up Instructions / Follow-Up PLEASE TAKE YOUR ANTIBIOTIC MOXIFLOXACIN EVERYDAY. INCLUDE YOGURT IN YOUR DAILY DIET WHILE ON ANTIBIOTICS AND AT LEAST 1 WEEK AFTER. AVOID HEAVY, FATTY MEALS. DRINK PLENTY OF FLUIDS. CALL YOUR PRIMARY CARE PHYSICIAN OR RETURN TO ER IMMEDIATELY IF WITH RECURRENCE OF SYMPTOMS, ABDOMINAL PAIN, NAUSEA, FEVER/CHILLS. FOLLOW UP WITH PRIMARY CARE PHYSICIAN IN 3-5 DAYS. FOLLOW UP WITH GENERAL SURGEON SOON POSSIBLE FOR EVALUATION RE: GALLBLADDER REMOVAL. Current Hospital Diet Patient's current hospital diet: Full Liquid Diet Discharge Diet Recommended Diet: Low Fiber Diet Procedures Procedures Performed: GALBLADDER US, ABDOMINAL MRCP Pending Studies Studies pending at discharge: yes List of pending studies: REPEAT BLOODWORK AND REFERRAL TO GENERAL SURGEON C/O PRIMARY CARE PHYSICIAN Medical Emergencies . Who to Call and When: Medical Emergencies: If at any time you feel your situation is an emergency, please call 911 immediately. . Non-Emergent Contact Non-Emergency issues call your: Primary Care Provider Call Non-Emergent contact if: you have a fever, your pain is not controlled, your pain is worsening, you have any medication questions . . "Provider Documentation" section prepared by Brice Davidson. . VTE Core Measure Inpt VTE Proph given/why not?: SCD's
[2017-05-11 16:05] VITALS: BP 159/87; PULSE 61; TEMP 36.5; O2SAT 97
--- NOTE | 2017-05-15 12:31 | Discharge Summary ---
Discharge Summary Date of Service May 15, 2017. Discharge Summary Admission Date: May 09, 2017 at 04:26 Discharge Date: May 11, 2017 Discharge Disposition: Home Principal Diagnosis: SEPTIC SHOCK LIKELY BILIARY TRACT SOURCE Secondary Diagnoses/Problems: PLEASE REFER TO HOSPITAL COURSE BELOW Procedures: ABDOMINAL ULTRASOUND, RIGHT UPPER QUADRANT HISTORY: elevated lfts. COMPARISON: None. FINDINGS: Pancreas: The pancreatic head and tail are obscured by overlying bowel gas. The remaining portions of the pancreas are within normal limits. Liver: Mildly enlarged measuring 21 cm. No hepatic masses. Gallbladder: Multiple small gallstones. No gallbladder wall thickening. CBD: 5 mm. Right kidney: No hydronephrosis. IMPRESSION: 1. Mild hepatomegaly. 2. Cholelithiasis. MRCP HISTORY: Elevated LFTs. r/o biliary obstruction, cholelithiasis. TECHNIQUE: MRCP of the abdomen was performed according to standard departmental protocol without the use of contrast. COMPARISON STUDY: Abdominal ultrasound 05/09/2017. FINDINGS: Multiple small gallstones. No gallbladder wall thickening. Trace pericholecystic fluid. Trace bilateral pleural effusions. The liver, spleen, adrenal glands, and pancreas are unremarkable. Small bilateral renal T2 hyperintense lesions consistent with cysts. No hydronephrosis. Trace bilateral first edema. No retroperitoneal lymphadenopathy. Small diverticulum at the second portion of the duodenum. No filling defects within the common bile duct to suggest a stone. No intrahepatic bile duct dilatation. The gallbladder is mildly distended. IMPRESSION: 1. The gallbladder is mildly distended and contains multiple small stones. No gallbladder wall thickening. Trace nonspecific pericholecystic fluid. 2. Normal caliber common bile duct. No stones within the common bile duct. 3. Trace bilateral pleural effusions. HISTORY: Elevated LFTs. r/o biliary obstruction, cholelithiasis. TECHNIQUE: MRCP of the abdomen was performed according to standard departmental protocol without the use of contrast. COMPARISON STUDY: Abdominal ultrasound 05/09/2017. FINDINGS: Multiple small gallstones. No gallbladder wall thickening. Trace pericholecystic fluid. Trace bilateral pleural effusions. The liver, spleen, adrenal glands, and pancreas are unremarkable. Small bilateral renal T2 hyperintense lesions consistent with cysts. No hydronephrosis. Trace bilateral first edema. No retroperitoneal lymphadenopathy. Small diverticulum at the second portion of the duodenum. No filling defects within the common bile duct to suggest a stone. No intrahepatic bile duct dilatation. The gallbladder is mildly distended. IMPRESSION: 1. The gallbladder is mildly distended and contains multiple small stones. No gallbladder wall thickening. Trace nonspecific pericholecystic fluid. 2. Normal caliber common bile duct. No stones within the common bile duct. 3. Trace bilateral pleural effusions. CHEST ONE VIEW PORTABLE HISTORY: Generalized abdominal pain. Vomiting. COMPARISON: None. FINDINGS: The lungs are clear. Cardiac silhouette is normal in size. No pleural effusions. No pneumothorax. IMPRESSION: No acute process. Consultations: PRODUCTION ILLUSTRATOR DR. MOREAU, INSTRUMENT REPAIR TECHNICIAN DR. DESIR Pending Studies/Follow-Up: PLEASE REFER TO HOSPITAL COURSE BELOW. Medication Reconciliation New Medications: Moxifloxacin Hcl (Avelox) 400 Mg Tab 1 TAB PO DAILY for 7 Days, #7 TAB take with full stomach Admission Information HPI (per Admitting provider): 67 YO male from [place], [place]. Visiting his family here. PCP: Dr. Kenny Morelos [address] [place] [address] He enjoys excellent health. 2 days prior to admission he developed epigastric abdominal pain a couple hours after eating a burrito. Pain was severe and did not radiate. It was initially associated with nausea, no vomiting. Tried antacid without much benefit. Yesterday he felt week and lightheaded. Persistent nausea and subsequent vomiting. No diarrhea. No hematemesis, melena, hematochezia. Temp as high as 104. Experienced chills and sweats. Came to ED for evaluation. BP as low as 79 systolic. BP remained in 80's systolic after fluid resuscitation with 2 L NSS. . Physical Exam (per Admitting): General Appearance: WD/WN, no apparent distress Head: normocephalic, atraumatic Eyes: normal inspection, PERRL, EOMI, sclerae normal (conjunctivae pink) ENT: normal ENT inspection, hearing grossly normal, pharynx normal Neck: supple, no adenopathy, thyroid normal, trachea midline Respiratory/Chest: lungs clear, no respiratory distress, no accessory muscle use Cardiovascular: regular rate, rhythm, no edema, no gallop, no JVD, no murmur , normal peripheral pulses Abdomen/GI: + pertinent finding (quiet bowel sounds, soft, nondistended, nontender, no hepatomegaly or splenomegaly appreciated) Extremities/Musculoskelatal: normal inspection, no calf tenderness, no pedal edema Neurologic/Psych: bulk sealer II-XII nml as tested (PERRL, EOMI, no facial palsy, no dysarhtria), no motor/sensory deficits (motor strength upper and lower exrtremities intact), alert, normal mood/affect, normal reflexes (patellar DTR' s 2/2, plantar reflexes downgoing), oriented x 3 Skin: normal color, warm/dry, no rash, + diaphoresis (mild) Lymphatic: no adenopathy (cervical / axillary) Hospital Course SEPTIC SHOCK LIKELY BILIARY TRACT SOURCE - patient presented with hypotension- systolic BP as low as 70's, febrile, WBC 12k, elevated LFTs - admitted to the ICU, required Levophed overnight, IV fluids boluses, IV Unasyn - MRCP: IMPRESSION: 1. The gallbladder is mildly distended and contains multiple small stones. No gallbladder wall thickening. Trace nonspecific pericholecystic fluid. 2. Normal caliber common bile duct. No stones within the common bile duct. 3. Trace bilateral pleural effusions. - source of sepsis felt to be from biliary tract source given elevated Bilirurin and AST/ALT in the setting of cholelithiasis given 3 days of IV Unasyn remained normotensive, afebrile, WBC improved to 9, LFTs improving blood cultures: negative clear liquids--> advanced diet as tolerated - evaluated by Gastroenterology, no further interventions at this time, recommend General Surgery Referral for Cholecystectomy evaluation evaluated by General Surgery Dr. Pino, recommend outpatient Cholecystectomy - patient clinically improved, ready for discharge home prefers to ff up with PCP and be referred to outpatient Surgeon [place] - discharge on Moxifloxacin 400mg daily x 7 more days to complete 10 day course of antibiotics ff up with PCP in 3- 5 days ff up with General Surgeon in [place] for Cholecystectomy evaluation VTE PROPHYLAXIS given Heparin Ambulation encouraged RESUSCITATION STATUS "Level 1" (full resuscitation). DISPOSITION d/c home Medical follow-up with Dr. Morelos in [place]. ff up with General Surgeon in [place] Total time spent on discharge = 30 minutes This includes examination of the patient, discharge planning, medication reconciliation, and communication with other providers. Discharge Instructions Discharge Instructions Date of Service May 11, 2017. Admission Reason for Admission: Sepsis Discharge Discharge Diagnosis / Problem: SEPSIS, POSSIBLE BILIARY TRACT INFECTION Discharge Goals Goal(s): Diagnostic testing, Therapeutic intervention Activity Recommendations Activity Limitations: as noted below (INCREASE ACTIVITY GRADUALLY TOLERATED) Lifting Limitations: until after follow-up appointment Exercise/Sports Limitations: until after follow-up appointment . Instructions / Follow-Up Instructions / Follow-Up PLEASE TAKE YOUR ANTIBIOTIC MOXIFLOXACIN EVERYDAY. INCLUDE YOGURT IN YOUR DAILY DIET WHILE ON ANTIBIOTICS AND AT LEAST 1 WEEK AFTER. AVOID HEAVY, FATTY MEALS. DRINK PLENTY OF FLUIDS. CALL YOUR PRIMARY CARE PHYSICIAN OR RETURN TO ER IMMEDIATELY IF WITH RECURRENCE OF SYMPTOMS, ABDOMINAL PAIN, NAUSEA, FEVER/CHILLS. FOLLOW UP WITH PRIMARY CARE PHYSICIAN IN 3-5 DAYS. FOLLOW UP WITH GENERAL SURGEON SOON POSSIBLE FOR EVALUATION RE: GALLBLADDER REMOVAL. Current Hospital Diet Patient's current hospital diet: Full Liquid Diet Discharge Diet Recommended Diet: Low Fiber Diet Procedures Procedures Performed: GALBLADDER US, ABDOMINAL MRCP Pending Studies Studies pending at discharge: yes List of pending studies: REPEAT BLOODWORK AND REFERRAL TO GENERAL SURGEON C/O PRIMARY CARE PHYSICIAN Medical Emergencies . Who to Call and When: Medical Emergencies: If at any time you feel your situation is an emergency, please call 911 immediately. . Non-Emergent Contact Non-Emergency issues call your: Primary Care Provider Call Non-Emergent contact if: you have a fever, your pain is not controlled, your pain is worsening, you have any medication questions . . "Provider Documentation" section prepared by Brice Davidson. . VTE Core Measure Inpt VTE Proph given/why not?: SCD's
== END 2017-05-11 16:36 | disposition home or self-care (01) | DRG 871 ==
LOC: C.EDB 00:51 → EDBD 00:51 → C.MSICU 04:26 → EDBEDREQ 04:30 → ENRESERV 04:36 → C.MED 05-10 13:23
PROVIDERS: ADMIT Hospitalist; ATTEND Internal Medicine
DX: A41.9 Sepsis, unspecified organism (principal); R65.21 Severe sepsis with septic shock; K80.33 Calculus of bile duct with acute cholangitis with obstruction; J90 Pleural effusion, not elsewhere classified; Z82.49 Family history of ischemic heart disease and other diseases of the circulatory system; Z82.0 Family history of epilepsy and other diseases of the nervous system; Z87.891 Personal history of nicotine dependence; R79.89 Other specified abnormal findings of blood chemistry